=== PATIENT | male | born 1965 | race Caucasian/White ===

== ENCOUNTER → 2018-02-09 | Outpatient (CLI) | payer BC | END | disposition home or self-care (01) | LOC: LABPAT 08:17 | PROVIDERS: ATTEND Surgery Plastic and Reconstructive Surgery | DX: Z01.818 Encounter for other preprocedural examination (principal) | CPT/HCPCS: 93005 ==

== ENCOUNTER → 2018-12-16 | Day surgery (SDC) | payer BC ==
[2018-12-12 14:48] VITALS: BMI 26.6
[~2018-12-16] MED LIST: DEXAMETHASONE SOD PHOSPHATE 10 MG/ML 1 ML VIAL IV ONE; GLYCOPYRROLATE 0.2 MG/ML 2 ML VIAL ONE; HEPARIN SODIUM,PORCINE 5,000 UNIT/ML 1 ML VIAL SQ ONE; HYDROcodone/APAP 7.5-325MG 1 EACH TAB PO ONE; HYDROmorphone 0.5 MG/0.5 ML SYRINGE IVP PRN; KETOROLAC 30 MG/ML 1 ML VIAL ONE; LACTATED RINGERS 1,000 ML IV ONE; LACTATED RINGERS 1,000 ML IV SCH; LIDOCAINE 1% INJ 10MG/ML (20 ML MDV) ONE; LIDOCAINE 1%-EPI 1:100,000 20 ML VIAL SQ ONE; MIDAZOLAM (PF) 2 MG/2 ML VIAL IVP ONE; MIDAZOLAM 2 MG/2 ML VIAL ONE; NEOSTIGMINE 1 MG/ML 10 ML VIAL ONE; ONDANSETRON 4 MG/2 ML VIAL IVP ONE; PROPOFOL 10 MG/ML 20 ML VIAL IV ONE; ROCURONIUM BROMIDE 10 MG/ML 10 ML VIAL IV ONE; ROPIVACAINE 5 MG/ML 30 ML VIAL ONE; TAMSULOSIN 0.4 MG CAP.ER.24H PO STA; ceFAZolin IN SWFI 2 GM/20 ML SYRINGE IVP ONE; fentaNYL (PF) 50 MCG/ML 2 ML AMP IVP ONE; fentaNYL (PF) 50 MCG/ML 2 ML AMP ONE
--- NOTE | 2018-12-16 06:18 | P.GSHP ---
History of Present Illness H&P Date: 12/16/18 CHIEF COMPLAINT: Inguinal hernia, right HISTORY OF PRESENT ILLNESS: The patient is a 51-year-old male who presents with a history of swelling and pain along the right groin. He also reports umbilical hernia. He's noted increased swelling including pain of the area. Now he presents for repair of his inguinal and ventral hernia. PAST MEDICAL HISTORY: Please see list. PAST SURGICAL HISTORY: Please see list. MEDICATIONS: Please see list. ALLERGIES: Please see list. SOCIAL HISTORY: No illicit drug use FAMILY HISTORY: No reports of Crohn disease or ulcerative colitis. REVIEW OF ORGAN SYSTEMS: CONSTITUTIONAL: No reports of fevers or chills. No reports of weight loss despite prior attempts. GI: Denies any blood in stools or constipation. PHYSICAL EXAM: VITAL SIGNS: Stable GENERAL: Well-developed pleasant male in no acute distress. HEENT: No scleral icterus. Extraocular movements grossly intact. Moist buccal mucosa. NECK: Supple without lymphadenopathy. CHEST: Unlabored respirations. Equal bilateral excursions. CARDIOVASCULAR: Regular rate and rhythm. Distal 2+ pulses. ABDOMEN: Soft, nondistended. No peritoneal signs. Palpable defect of the right groin and umbilicus MUSCULOSKELETAL: No clubbing, cyanosis, or edema. ASSESSMENT: 1. Inguinal hernia, right 2. Umbilical hernia PLAN: 1. Recommend proceeding with a robotic inguinal and ventral repair with mesh with possible bilateral approach. 2. Benefits and risks of surgical intervention was discussed including possibility of open technique. 3. DVT prophylaxis. 4. Antibiotic prophylaxis. Past Medical History Past Medical History: Hyperlipidemia, Hypertension Additional Past Medical History / Comment(s): hx kidney stones History of Any Multi-Drug Resistant Organisms: None Reported Past Surgical History: Adenoidectomy, Tonsillectomy Additional Past Surgical History / Comment(s): polyps removed from sinus, lithotripsy Past Anesthesia/Blood Transfusion Reactions: No Reported Reaction Smoking Status: Never smoker - Past Family History Mother Family Medical History: No Reported History Medications and Allergies Home Medications Medication Instructions Recorded Confirmed Type Atorvastatin [Lipitor] 20 mg PO HS 12/13/18 12/13/18 History Telmisartan [Micardis] 40 mg PO HS 12/13/18 12/13/18 History Allergies Allergy/AdvReac Type Severity Reaction Status Date / Time No Known Allergies Allergy Verified 12/12/18 14:41
--- NOTE | 2018-12-16 09:48 | P.ANPRN ---
Procedure Note - Anesthesia - Nerve Block Performed Bilateral Rectus Abdominis Single Time Out Performed: Yes Date of Procedure: 12/16/18 Procedure Start Time: : Procedure Stop Time: :40 Location of Patient Procedure: PreOp Indication: Requested by physician Specifically requested for management of pain by DrJessica: Lashae Gregg Sedation Type: Sedate with meaningful contact maintained Preparation: Sterile Prep Position: Supine Needle Types: Pajunk Needle Gauge: 21 Technique: Ultrasound Injectate: 0.5% Ropivacaine (see comment for volume) (15+15) Blood Aspirated: No Pain Paresthesia on Injection Noted: No Resistance on Injection: Normal Events: Uneventful and Well Tolerated
[2018-12-16 13:08] VITALS: TEMP 98
--- NOTE | 2018-12-16 13:19 | P.OP ---
Date of Procedure: 12/16/18 Description of Procedure: SURGEON: LASHAE GREGG MD PREOPERATIVE DIAGNOSES: 1. Initial right inguinal hernia, initial 2. Hyperlipidemia 3. Hypertensive heart disease 4. Umbilical hernia, initial POSTOPERATIVE DIAGNOSES: 1. Initial right inguinal hernia, initial, incarcerated with small bowel obstruction, indirect 2. Hyperlipidemia 3. Hypertensive heart disease 4. Umbilical hernia, initial, incarcerated 5. Initial left inguinal hernia, reducible, indirect 6. Right inguinal lipoma, subfascial, 3 x 4 cm OPERATION: 1. Robotic-assisted da Esau Xi laparoscopic repair of initial incarcerated right direct inguinal hernia with mesh, 11.[address] 2. Robotic-assisted da Esau Xi laparoscopic repair of initial incarcerated left direct inguinal hernia with mesh, 11.[address] 3. Robotic-assisted da Esau Xi laparoscopic repair of initial incarcerated umbilical hernia without mesh 4. Resection of incarcerated right inguinal lipoma, 4 cm ANESTHESIA: General with local anesthetic ESTIMATED BLOOD LOSS: 5 mL. SPECIMENS: 1. Incarcerated right inguinal hernia sac 2. Incarcerated umbilical hernia 3. Right inguinal lipoma COMPLICATIONS: None. FINDINGS: 1. Incarcerated umbilical hernia 3 cm 2. Inguinal lipoma right groin 3 x 4 cm 3. Redundancy of sigmoid colon identified 4. Bilateral indirect hernias, 2 cm inguinal hernia left 5. 4 cm inguinal hernia incarcerated with small bowel without strangulation right side 6. Console length 1 hour and 48 minutes INDICATIONS: The patient is a 53-year-old gentleman who presents with history of right inguinal hernia and umbilical hernia. Now he presents for definitive surgical intervention. Laparoscopic versus open and robotic approaches were discussed including bilateral approach. Benefits and risks including bleeding, infection, injury to the vas deferens as well as sterility and chronic groin pain were reviewed. Placement of mesh was also described. Informed consent was obtained. DESCRIPTION: In the preoperative area, an abdominal block was placed per anesthesia. The patient was brought to the operating room and initially laid in supine position. The abdomen had been prepped and draped in standard sterile fashion. Ioban draping was also placed. Prior to incision, a timeout protocol was confirmed with surgical team regarding patient's name including procedures to be performed. Initial positioning for the robotic assisted ports were selected whereby 20 cm superior to the target anatomy, 0 degree 5 mm laparoscopic trocar entry was performed at the left upper quadrant. The abdomen was insufflated to 15 mmHg which he had tolerated well. Diagnostic laparoscopy demonstrated no injury to bowel, viscera or mesentery. Incarcerated small bowel was found along the right groin. A defect along the left groin was found. The sigmoid colon was highly redundant. Next, along the epigastrium, 8 mm robot trocar was placed. An 8-mm robotic trocar was placed under direct visualization at the right upper quadrant. An 8 mm port was placed at the left upper quadrant. All trocars were positioned between 10-cm apart from each other. The [email or web address] robot was primed, draped, prepared for docking along upper abdomen of the patient. The patient was positioned 16 steep Trendel enburg position. I then went to the [email or web address] Xi console. The assistant store leader was at bedside for exchange of the robot arms and equipment. A very large right inguinal defect was confirmed as the small bowel was reduced from the right groin after direct pressure over the inguinal area was placed by the assistant store leader. Next, careful attention along the right groin demonstrated 4-cm hernia with the sac extending to the scrotum. A large indirect hernia was confirmed. The right inguinal hernia sac was evaginated whereby the peritoneum was scored using Endo scissors with cautery. As the hernia sac extended into the scrotum, complete resection of the sac was incomplete. Additionally, a 3 x 4 cm right inguinal lipoma was reduced. The peritoneal sac of the hernia was stripped along a tightly incarcerated inguinal hernia involving a large 4-cm right inguinal lipoma. The lipoma and sac was resected and then passed off for further pathological analysis. The size of the hernia defect was 4 cm with intraoperative films obtained. Using a 2-0 VLOC, the peritoneal defect of the right inguinal hernia site was closed using a running suture. The defect was found to be completely closed with complete reduction of the right direct inguinal hernia was confirmed. As an onlay, an 11.[address] mesh by [employer] was initially cut in half and entered into the abdominal cavity via the 8 mm trocar. The mesh was tacked to the pelvis using 2-0 VLOC 9-inch length sutures. Attention was brought to the left groin. The left indirect inguinal hernia sac was evaginated whereby the peritoneum was scored using Endo scissors with cautery. Once completely reduced into the abdominal cavity, the peritoneal sac of the hernia was stripped. The sac was resected and then passed off for further pathological analysis. The size of the hernia defect was 3 cm with intraoperative films obtained. Using a 2-0 VLOC, the peritoneal defect of the left inguinal hernia sites was closed using a running suture separately. The defect was found to be completely closed with complete reduction of the left indirect inguinal hernia were confirmed. As an onlay, an 11.[address] mesh by [employer] was initially cut in half and entered into the abdominal cavity via the 8 mm trocar. The mesh was tacked to the pelvis using 2-0 VLOC 12-inch length sutures. Lastly, attention was brought to the umbilical hernia repair portion of the procedure. Fascial defect of 2 cm was identified at the umbilicus where an incarcerated ventral hernia was identified also containing fat. The incarcerated contents was reduced as the peritoneal fat was cleaned from the abdominal wall. Next, hemostasis was checked with cautery. The hernia defect of 2-cm was oversewn using #1 Stratafix with fascial imbrication 3. A final endoscopic imaging was obtained. The robot was undocked from the patient's bedside. I then rescrubbed into the case. Insufflation was released from the abdominal cavity and all instruments were re moved from the abdominal cavity. The rest of incisions were reapproximated using 4-0 Monocryl in a running subcuticular fashion. Local anesthetic was placed along the incision including for a bilateral groin block. Incisions were cleansed using dilute hydrogen peroxide. Liquid glue was applied to the skin. At the end of the procedure, the needle, sponge and instrument counts had been verified correct by the surgical supply assistant. The patient had tolerated the procedure well and was taken to the postanesthesia care unit in stable condition. Plan - Discharge Summary Discharge Rx Participant: Yes New Discharge Prescriptions: No Action Telmisartan [Micardis] 40 mg PO HS Atorvastatin [Lipitor] 20 mg PO HS Discharge Medication List Atorvastatin [Lipitor] 20 mg PO HS 12/13/18 [History] Telmisartan [Micardis] 40 mg PO HS 12/13/18 [History] Follow up Appointment(s)/Referral(s): Lashae Gregg MD [STAFF PHYSICIAN] - 12/27/18 Patient Instructions/Handouts: Laparoscopic Herniorrhaphy (DC), Abdominal Binder (DC), Inguinal Hernia Repair (DC), Umbilical Hernia Repair (DC) Activity/Diet/Wound Care/Special Instructions: No lifting over 4 pounds till December 27. October shower. No bath tub soaks until December 27t. Do not remove dressing at belly button. Use Tylenol or ibuprofen for pain. Use ice along incisions including bilateral groin and bellybutton. Please wear abdominal binder for comfort. Discharge Disposition: HOME SELF-CARE
[2018-12-16 14:11] VITALS: RESP 17
[2018-12-16 14:13] VITALS: BP 144/82; PULSE 70
== END | disposition home or self-care (01) ==
LOC: OR 08:22
PROVIDERS: ATTEND Surgery Plastic and Reconstructive Surgery
DX: K40.00 Bilateral inguinal hernia, with obstruction, without gangrene, not specified as recurrent (principal); K42.0 Umbilical hernia with obstruction, without gangrene; D17.1 Benign lipomatous neoplasm of skin and subcutaneous tissue of trunk; E78.5 Hyperlipidemia, unspecified; I11.9 Hypertensive heart disease without heart failure; Z87.442 Personal history of urinary calculi; Z79.899 Other long term (current) drug therapy
CPT/HCPCS: 64488; 88304; 88302; 49650; 49653; 11406; C1781; J2250 ×2; J1644; J1100; J2710; J2405; J2001; J3010; J1885; J2795; J2704; J0690

== ENCOUNTER 2019-01-06 11:02 | Day surgery (SDC) | payer BC ==
[2019-01-04 14:48] VITALS: BMI 27.3
--- NOTE | 2019-01-06 07:29 | P.GSHP ---
History of Present Illness H&P Date: 01/06/19 CHIEF COMPLAINT: GERD HISTORY OF PRESENT ILLNESS: The patient is a 53-year-old male who presents reports gastroesophageal reflux disease. Upper endoscopy was offered for further evaluation and management. PAST MEDICAL HISTORY: Please see list. PAST SURGICAL HISTORY: Please see list. MEDICATIONS: Please see list. ALLERGIES: Please see list. SOCIAL HISTORY: No illicit drug use FAMILY HISTORY: No reports of Crohn disease or ulcerative colitis. REVIEW OF ORGAN SYSTEMS: CONSTITUTIONAL: No reports of fevers or chills. GI: Denies any blood in stools or constipation. PHYSICAL EXAM: VITAL SIGNS: Stable GENERAL: Well-developed and pleasant in no acute distress. HEENT: No scleral icterus. Extraocular movements grossly intact. Moist buccal mucosa. NECK: Supple without lymphadenopathy. CHEST: Unlabored respirations. Equal bilateral excursions. CARDIOVASCULAR: Regular rate and rhythm. Distal 2+ pulses. ABDOMEN: Soft, nondistended. MUSCULOSKELETAL: No clubbing, cyanosis, or edema. ASSESSMENT: 1. Gastroesophageal reflux disease PLAN: 1. Recommend proceeding with an upper endoscopy Past Medical History Past Medical History: Hyperlipidemia, Hypertension Additional Past Medical History / Comment(s): hx kidney stones History of Any Multi-Drug Resistant Organisms: None Reported Past Surgical History: Adenoidectomy, Hernia Repair, Tonsillectomy Additional Past Surgical History / Comment(s): polyps removed from sinus, lithotripsy. umbilical hernia and lonny inguinal hernia surgery Past Anesthesia/Blood Transfusion Reactions: No Reported Reaction Smoking Status: Never smoker - Past Family History Mother Family Medical History: No Reported History Medications and Allergies Home Medications Medication Instructions Recorded Confirmed Type Atorvastatin [Lipitor] 20 mg PO HS 12/13/18 01/04/19 History Telmisartan [Micardis] 40 mg PO HS 12/13/18 01/04/19 History Allergies Allergy/AdvReac Type Severity Reaction Status Date / Time No Known Allergies Allergy Verified 01/04/19 14:43
[~2019-01-06 11:02] MED LIST changes: -DEXAMETHASONE SOD PHOSPHATE 10 MG/ML 1 ML VIAL IV ONE; -GLYCOPYRROLATE 0.2 MG/ML 2 ML VIAL ONE; -HEPARIN SODIUM,PORCINE 5,000 UNIT/ML 1 ML VIAL SQ ONE; -HYDROcodone/APAP 7.5-325MG 1 EACH TAB PO ONE; -HYDROmorphone 0.5 MG/0.5 ML SYRINGE IVP PRN; -KETOROLAC 30 MG/ML 1 ML VIAL ONE; -LACTATED RINGERS 1,000 ML IV ONE; -LIDOCAINE 1% INJ 10MG/ML (20 ML MDV) ONE; -LIDOCAINE 1%-EPI 1:100,000 20 ML VIAL SQ ONE; -MIDAZOLAM (PF) 2 MG/2 ML VIAL IVP ONE; -MIDAZOLAM 2 MG/2 ML VIAL ONE; -NEOSTIGMINE 1 MG/ML 10 ML VIAL ONE; -ONDANSETRON 4 MG/2 ML VIAL IVP ONE; -PROPOFOL 10 MG/ML 20 ML VIAL IV ONE; -ROCURONIUM BROMIDE 10 MG/ML 10 ML VIAL IV ONE; -ROPIVACAINE 5 MG/ML 30 ML VIAL ONE; -TAMSULOSIN 0.4 MG CAP.ER.24H PO STA; -ceFAZolin IN SWFI 2 GM/20 ML SYRINGE IVP ONE; -fentaNYL (PF) 50 MCG/ML 2 ML AMP IVP ONE; -fentaNYL (PF) 50 MCG/ML 2 ML AMP ONE
[2019-01-06 11:24] VITALS: RESP 18; TEMP 98.3
[2019-01-06] MEDS ORDERED: PROPOFOL 10 MG/ML 20 ML VIAL IV ONE (11:45)
[2019-01-06] MEDS ORDERED: LIDOCAINE 1% INJ 10MG/ML (20 ML MDV) ONE (11:45)
--- NOTE | 2019-01-06 11:58 | P.PCN ---
Date of Procedure: 01/06/19 Description of Procedure: PREOPERATIVE DIAGNOSIS: Gastroesophageal reflux disease. POSTOPERATIVE DIAGNOSIS: Gastroesophageal reflux disease. OPERATION: Esophagogastroduodenoscopy with biopsies along antrum. SURGEON: Lashae Gregg MD ANESTHESIA: MAC. INDICATIONS: The patient is a 53-year-old male who presents with a history of reflux disease. Benefits and risks of the procedure were described. Informed consent was obtained. DESCRIPTION: The patient was brought into the endoscopy suite and laid in the left lateral decubitus position. An Olympus gastroscope was passed along the posterior oropharynx down to the distal esophagus where the squamocolumnar junction was encountered at 39 cm from the incisors. The stomach was entered and no bile reflux was found. Additional findings are listed below. Biopsies with cold forceps were obtained of the antrum. The first through third portion of the duodenum was examined and unremarkable. Retroflexion of the scope confirmed Hill grade 2 lower esophageal valve. The squamocolumnar junction demonstrated LA grade B erosive esophagitis. The stomach was desufflated. The patient tolerated the procedure well. FINDINGS: Squamocolumnar junction 39 cm from the incisors. Diaphragmatic hiatus at 39 cm. Hill grade 2 lower esophageal valve. LA grade B erosive esophagitis. No active duodenitis. Chronic gastritis RECOMMENDATIONS: Upper endoscopy as needed. Plan - Discharge Summary Discharge Rx Participant: Yes New Discharge Prescriptions: New Omeprazole 20 mg PO DAILY #30 cap No Action Telmisartan [Micardis] 40 mg PO HS Atorvastatin [Lipitor] 20 mg PO HS Discharge Medication List Atorvastatin [Lipitor] 20 mg PO HS 12/13/18 [History] Telmisartan [Micardis] 40 mg PO HS 12/13/18 [History] Omeprazole 20 mg PO DAILY #30 cap 01/06/19 [Rx] Follow up Appointment(s)/Referral(s): Lashae Gregg MD [STAFF PHYSICIAN] - 01/24/19 Patient Instructions/Handouts: Gastroesophageal Reflux Disease (ED) Discharge Disposition: HOME SELF-CARE
[2019-01-06 12:24] VITALS: BP 126/76; PULSE 68
== END 2019-01-06 12:32 | disposition home or self-care (01) ==
LOC: ORWHC2ENDO 11:02
PROVIDERS: ATTEND Surgery Plastic and Reconstructive Surgery
DX: K29.50 Unspecified chronic gastritis without bleeding (principal); E78.5 Hyperlipidemia, unspecified; I10 Essential (primary) hypertension; K22.10 Ulcer of esophagus without bleeding; K21.9 Gastro-esophageal reflux disease without esophagitis; Z79.899 Other long term (current) drug therapy; Z87.442 Personal history of urinary calculi
CPT/HCPCS: 88305; 43239; J2001; J2704

== ENCOUNTER → 2021-01-08 | Outpatient (CLI) | payer BC ==
--- NOTE | 2021-01-09 07:43 | CT ---
EXAMINATION TYPE: CT abdomen pelvis w con DATE OF EXAM: 01/08/2021 COMPARISON: January 21, 2016 HISTORY: Umbilical and right inguinal pain x2 months. CT DLP: 854.6 mGycm CONTRAST: CT scan of the abdomen and pelvis is performed with Oral Contrast and with IV Contrast, patient injec newton with 100ml mL of Isovue 300. FINDINGS: LUNG BASES-: No visible nodule. No infiltrate. LIVER/GB: No calcified gallstones. No space occupying hepatic lesion. Biliary tree is of normal ca liber. PANCREAS: No inflammation. No distinct mass. SPLEEN: No splenic enlargement. No lesion seen. ADRENALS: No nodule. No thickening. KIDNEYS/BLADDER: No hydronephrosis. No nephrolithiasis. No distinct renal mass. Urinary bladder g rossly unremarkable. BOWEL: Normal appendix. Normal bowel caliber. No inflammation. GENITAL ORGANS: No gross abnormality. LYMPH NODES: No greater than 1cm abdominal or pelvic lymph nodes are appreciated. AORTA: No significant abnormality. OSSEOUS STRUCTURES: No significant abnormality is seen. OTHER: No significant additional abnormality is seen. IMPRESSION: 1. No evidence for inflammatory process and more specifically diverticulitis.
== END | disposition home or self-care (01) ==
LOC: RADCTMAIN 16:28
PROVIDERS: ATTEND Surgery Plastic and Reconstructive Surgery
DX: K42.9 Umbilical hernia without obstruction or gangrene (principal); K40.90 Unilateral inguinal hernia, without obstruction or gangrene, not specified as recurrent; R10.9 Unspecified abdominal pain
CPT/HCPCS: 74177; Q9967

== ENCOUNTER → 2021-01-14 | Outpatient (CLI) | payer BC | END | disposition home or self-care (01) | LOC: LABWHC1 10:16 | PROVIDERS: ATTEND Surgery Plastic and Reconstructive Surgery | DX: I11.0 Hypertensive heart disease with heart failure (principal); I50.9 Heart failure, unspecified; I49.1 Atrial premature depolarization; I42.2 Other hypertrophic cardiomyopathy; R94.31 Abnormal electrocardiogram [ECG] [EKG] | CPT/HCPCS: 93005 ==

== ENCOUNTER 2021-03-14 09:38 | Day surgery (SDC) | payer BC ==
[2021-03-11 17:48] VITALS: BMI 28.1
--- NOTE | 2021-03-14 06:15 | P.GSHP ---
History of Present Illness H&P Date: 03/14/21 CHIEF COMPLAINT: Inguinal hernia, right. HISTORY OF PRESENT ILLNESS: The patient is a 55-year-old male who presents with a history of swelling and pain along the right groin. He has noted increased swelling including pain of the area. Now he presents for repair of his inguinal hernia. PAST MEDICAL HISTORY: Please see list. PAST SURGICAL HISTORY: Please see list. MEDICATIONS: Please see list. ALLERGIES: Please see list. SOCIAL HISTORY: No illicit drug use FAMILY HISTORY: No reports of Crohn disease or ulcerative colitis. REVIEW OF ORGAN SYSTEMS: CONSTITUTIONAL: No reports of fevers or chills. No reports of weight loss despite prior attempts. GI: Denies any blood in stools or constipation. PHYSICAL EXAM: VITAL SIGNS: Stable GENERAL: Well-developed pleasant in no acute distress. HEENT: No scleral icterus. Extraocular movements grossly intact. Moist buccal mucosa. NECK: Supple without lymphadenopathy. CHEST: Unlabored respirations. Equal bilateral excursions. CARDIOVASCULAR: Regular rate and rhythm. Distal 2+ pulses. ABDOMEN: Soft, nondistended. No peritoneal signs. Swelling along the right groin MUSCULOSKELETAL: No clubbing, cyanosis, or edema. ASSESSMENT: 1. Inguinal hernia, right recurrent PLAN: 1. Recommend proceeding robotic inguinal repair with mesh with possible bilateral approach. 2. Benefits and risks of surgical intervention was discussed including possibility of open technique. 3. DVT prophylaxis. 4. Antibiotic prophylaxis. Past Medical History Past Medical History: Hyperlipidemia, Hypertension Additional Past Medical History / Comment(s): hx kidney stones, arrythmia History of Any Multi-Drug Resistant Organisms: None Reported Past Surgical History: Adenoidectomy, Hernia Repair, Tonsillectomy Additional Past Surgical History / Comment(s): polyps removed from sinus, lithotripsy,. umbilical hernia and lonny inguinal hernia surgery Past Anesthesia/Blood Transfusion Reactions: No Reported Reaction Smoking Status: Never smoker - Past Family History Mother Family Medical History: No Reported History Medications and Allergies Home Medications Medication Instructions Recorded Confirmed Type Atorvastatin [Lipitor] 20 mg PO HS 12/13/18 03/11/21 History Irbesartan [Avapro] 150 mg PO DAILY 03/11/21 03/11/21 History Allergies Allergy/AdvReac Type Severity Reaction Status Date / Time No Known Allergies Allergy Verified 03/11/21 17:29
[~2021-03-14 09:38] MED LIST changes: +ACETAMINOPHEN TAB 500 MG TAB PO PRN; +DEXAMETHASONE SOD PHOSPHATE 4 MG/ML 1 ML VIAL IV ONE; +GABAPENTIN 300 MG CAP PO PRN; +HEPARIN SODIUM,PORCINE/PF 5,000 UNIT/0.5 ML SYRINGE SQ PRN; +MELOXICAM 7.5 MG TAB PO PRN; +MIDAZOLAM 2 MG/2 ML VIAL IV PRN; +ONDANSETRON 4 MG/2 ML VIAL IVP ONE; +SCOPOLAMINE 1.5MG/72HR PATCH TRANSDERM ONE; +TAMSULOSIN 0.4 MG CAP.ER.24H PO PRN
[2021-03-14 10:00] VITALS: RESP 16
[2021-03-14 10:33] LABS: Basophils % (A) 1 %; Eosinophils # (A) 0.2 k/uL (0-0.7); Eosinophils % (A) 2 %; HCT 47.6 % (39.0-53.0); HGB 16.5 gm/dL (13.0-17.5); Hyperchromasia Slight; Lymphocytes # (A) 1.6 k/uL (1.0-4.8); Lymphocytes % (A) 23 %; MCH 28.5 pg (25.0-35.0); MCHC 34.6 g/dL (31.0-37.0); MCV 82.4 fL (80.0-100.0); Mean Platelet Volume 9.2; Monocytes # (A) 0.5 k/uL (0-1.0); Monocytes % (A) 7 %; Neutrophils # (A) 4.8 k/uL (1.3-7.7); Neutrophils % (A) 66 %; Platelet Count 169 k/uL (150-450); RBC 5.78 m/uL (4.30-5.90); RDW 12.7 % (11.5-15.5); WBC 7.2 k/uL (3.8-10.6)
[2021-03-14] MEDS ORDERED: fentaNYL (PF) 50 MCG/ML 2 ML AMP IV ONE (11:14)
[2021-03-14] MEDS ORDERED: MIDAZOLAM 2 MG/2 ML VIAL IV ONE ×2 (11:14→11:27)
[2021-03-14] MEDS ORDERED: HEPARIN SODIUM,PORCINE 5,000 UNIT/ML 1 ML VIAL SQ ONE (11:23)
[2021-03-14] MEDS ORDERED: GLYCOPYRROLATE 0.2 MG/ML 2 ML VIAL ONE (13:24)
[2021-03-14] MEDS ORDERED: HYDROmorphone (PF) 1 MG/ML ONE (13:24)
[2021-03-14] MEDS ORDERED: MIDAZOLAM 2 MG/2 ML VIAL ONE (13:24)
[2021-03-14] MEDS ORDERED: fentaNYL (PF) 50 MCG/ML 2 ML AMP ONE (13:24)
[2021-03-14] MEDS ORDERED: PROPOFOL 10 MG/ML 20 ML VIAL IV ONE (13:24)
[2021-03-14] MEDS ORDERED: NEOSTIGMINE 1 MG/ML 10 ML VIAL ONE (13:24)
[2021-03-14] MEDS ORDERED: LIDOCAINE 1% INJ 10MG/ML (20 ML MDV) ONE (13:24)
[2021-03-14] MEDS ORDERED: SODIUM CHLORIDE 0.9% (PF) 10 ML VIAL ONE (13:24)
[2021-03-14] MEDS ORDERED: ROCURONIUM 10 MG/ML (5 ML VIAL) IV ONE (13:24)
[2021-03-14] MEDS ORDERED: ROPIVACAINE 5 MG/ML 30 ML VIAL ONE (13:24)
[2021-03-14] MEDS ORDERED: SUCCINYLCHOLINE CHLORIDE 100 MG/5 ML SYR IV ONE (13:24)
[2021-03-14] MEDS ORDERED: LIDOCAINE 1%-EPI 1:100,000 20 ML VIAL SQ ONE (14:00)
[2021-03-14] MEDS ORDERED: LACTATED RINGERS 1,000 ML IV ONE (15:16)
[2021-03-14 15:41] VITALS: TEMP 96.8
[2021-03-14] MEDS ORDERED: KETOROLAC 15 MG/ML 1 ML VIAL ONE (16:11)
[2021-03-14] MEDS: HYDROmorphone 0.5 MG/0.5 ML SYRINGE IVP PRN ×2 (16:14→16:15)
[2021-03-14] MEDS ORDERED: KETOROLAC 15 MG/ML 1 ML VIAL IVP ONE (16:16)
[2021-03-14 17:13] VITALS: BP 136/87; PULSE 98
--- NOTE | 2021-03-14 17:41 | P.ANPRN ---
Procedure Note - Anesthesia - Nerve Block Performed Bilateral Erector Spinae Single Time Out Performed: Yes (1113) Date of Procedure: 03/14/21 Procedure Start Time: :14 Procedure Stop Time: Location of Patient: PreOp Indication: Acute Post-Operative Pain, Requested by Surgeon Specifically requested for management of pain by : Lashae Gregg Sedation Type: Sedate with meaningful contact maintained Preparation: Sterile Prep Position: Prone Catheter: None Needle Types: Pajunk Needle Gauge: 21 Ultrasound used to visualize needle placement: Yes Ultrasound used to observe medication spread: Yes Injectate: 0.5% Ropivacaine (see comment for volume) (15cc + nacl 15cc pf) Blood Aspirated: No Pain Paresthesia on Injection Noted: No Resistance on Injection: Normal Image Stored and Saved: Yes Events: Uneventful and Well Tolerated
--- NOTE | 2021-03-15 12:41 | P.OP ---
Date of Procedure: 03/14/21 Description of Procedure: SURGEON: LASHAE GREGG MD PREOPERATIVE DIAGNOSES: 1. Recurrent right inguinal hernia 2. History of small bowel obstruction 3. Hypertensive heart disease 4. Hyperlipidemia POSTOPERATIVE DIAGNOSES: 1. Obturator right inguinal hernia 2. History of small bowel obstruction 3. Hypertensive heart disease 4. Hyperlipidemia 5. Peritoneal adhesions with interloop adhesions OPERATION: 1. Robotic-assisted da Esau Xi extensive laparoscopic lysis of adhesions 30 minutes 2. Robotic-assisted da Esau Xi laparoscopic right recurrent inguinal/obturator hernia repair with mesh, 11.[address] 3. Excision of subfascial inguinal pelvic lipoma, 4-cm ANESTHESIA: General with local anesthetic ESTIMATED BLOOD LOSS: 5 mL. SPECIMENS REMOVED: Right obturator hernia lipoma COMPLICATIONS: None. FINDINGS: 1. Hernia found superior lateral to the bladder with obturator hernia 2. Obturator inguinal lipoma resected 4 cm 3. Primary repair intact. 4. Moderate peritoneal adhesions along bilateral hernia repairs sharply excised using the cautery and vessel sealer 5. Severe interloop adhesions involving distal ileum sharply excised INDICATIONS: The patient is a 55-year-old gentleman who presents with right groin pain and swelling. He had prior right inguinal hernia repair. Additionally, he reports intermittent bowel obstruction with abdominal pain and swelling. Now he presents for surgical intervention. Laparoscopic versus open and robotic approaches were discussed. Benefits and risks including bleeding, infection, injury to the vas deferens as well as sterility and chronic groin pain were reviewed. Placement of mesh was also described. Informed consent was obtained. DESCRIPTION: In the preoperative area, the patient was marked with indelible marker along the right lower abdomen. He patient was brought to the operating room and initially laid in supine position. The abdomen had been prepped and draped in standard sterile fashion. Ioban draping was also placed. Prior to incision, a timeout protocol was confirmed with surgical team regarding patient's name including procedures to be performed and location along the right groin. Robotic assisted ports were placed along his prior incisions. A 0 degree 5 mm laparoscopic trocar entry was performed at the left upper quadrant. The abdomen was insufflated to 15 mmHg which he had tolerated well. Diagnostic laparoscopy demonstrated severe peritoneal adhesions along prior inguinal hernia repair sites. Defect along the superior lateral bladder consistent obturator hernia was identified. Severe adhesions involving the right lower quadrant small bowel, distal ileum was identified. Prior mesh repair along both groins were intact. Next, along the epigastrium, 8 mm robot trocar was placed. An 8-mm robotic trocar was placed under direct visualization at the right upper quadrant. An 8 mm port was placed at the left upper quadrant. All trocars were positioned between 8 to 10-cm apart from each other. The [employer] XI robot was primed, draped, prepared for docking along the right side of the patient. The patient was placed in Trendelenberg position 21-degrees. I then went to the [employer] Xi console. The resident assistant was at bedside for exchange of the robot instruments. Extensive lysis of adhesions using hook cautery and vessel sealer were used over 30 minutes to address adhesions along the bilateral groins. Sharp dissection using scissors was used along multiple interloop adhesions involving the right lower quadrant/distal ileum without enterotomies. No hernia was identified along the left groin. The right inguinal obturator hernia sac was evaginated whereby the peritoneum was scored using Endo scissors with cautery. Once completely reduced into the abdominal cavity, the peritoneal sac of the hernia was stripped along an indirect inguinal hernia and a 4-cm subfascial pelvic lipoma and sac was resected and then passed off for further pathological analysis. The size of the hernia defect was 2 cm with intraoperative films obtained. Using a non-absorbale 2-0 VLOC, the peritoneal defect of the right inguinal hernia site was closed using a pursestring suture. The defect was found to be completely closed with complete reduction of the right obturator inguinal hernia was confirmed. As an onlay, an 11.[address] mesh by [employer] was initially cut in half and entered into the abdominal cavity via the 8 mm trocar. The mesh was tacked to the pelvis using 2-0 VLOC 9-inch length sutures. The robot was undocked from the patient's bedside. I then rescrubbed into the case. Insufflation was released from the abdominal cavity and all instruments were removed from the abdominal cavity. The rest of incisions were reapproximated using 4-0 Monocryl in a running subcuticular fashion. Local anesthetic was placed along the incision including for a right groin block. Incisions were cleansed using dilute hydrogen peroxide. Liquid glue was applied to the skin. At the end of the procedure, the needle, sponge and instrument counts had been verified correct by the surgical assist. The patient had tolerated the procedure well and was taken to the postanesthesia care unit in stable condition. Plan - Discharge Summary Discharge Rx Participant: Yes New Discharge Prescriptions: New Tamsulosin [Flomax] 0.4 mg PO DAILY #7 cap Simethicone [Gas-X] 125 mg PO AC-TID PRN #20 cap PRN Reason: Pain Ibuprofen [Motrin] 600 mg PO Q8HR PRN #30 tab PRN Reason: Pain Acetaminophen Tab [Tylenol Tab] 1,000 mg PO Q6HR PRN #30 tablet PRN Reason: Pain Continue Atorvastatin [Lipitor] 20 mg PO HS Irbesartan [Avapro] 150 mg PO DAILY Discharge Medication List Atorvastatin [Lipitor] 20 mg PO HS 12/13/18 [History] Irbesartan [Avapro] 150 mg PO DAILY 03/11/21 [History] Acetaminophen Tab [Tylenol Tab] 1,000 mg PO Q6HR PRN #30 tablet 03/14/21 [Rx] Ibuprofen [Motrin] 600 mg PO Q8HR PRN #30 tab 03/14/21 [Rx] Simethicone [Gas-X] 125 mg PO AC-TID PRN #20 cap 03/14/21 [Rx] Tamsulosin [Flomax] 0.4 mg PO DAILY #7 cap 03/14/21 [Rx] Follow up Appointment(s)/Referral(s): Lashae Gregg MD [STAFF PHYSICIAN] - 03/25/21 (CALL ON WEDNESDAY TO MAKE APPOINTMENT.) Patient Instructions/Handouts: *[facility] - Managing Your Pain After Surgery Without Opioids, *[facility] - (Anesthesia) Discharge Instructions Outpatient Surgery, Laparoscopic Herniorrhaphy (DC), Lysis of Abdominal Adhesions (IP), Bowel Obstruction (GEN), Inguinal Hernia Repair (DC) Activity/Diet/Wound Care/Special Instructions: No lifting over 10 pounds in 2 weeks until March 28. May shower. No bath tub soaks for two weeks until March 28. Diet as tolerated. Use Tylenol and ibuprofen or Aleve scheduled for the next 24-48 hours for best pain relief. Use ice along incisions for today to prevent swelling. Discharge Disposition: HOME SELF-CARE
== END 2021-03-14 17:29 | disposition home or self-care (01) ==
LOC: OR 09:38
PROVIDERS: ATTEND Surgery Plastic and Reconstructive Surgery
DX: K40.91 Unilateral inguinal hernia, without obstruction or gangrene, recurrent (principal); K66.0 Peritoneal adhesions (postprocedural) (postinfection); D17.79 Benign lipomatous neoplasm of other sites; R07.89 Other chest pain; I10 Essential (primary) hypertension; E78.5 Hyperlipidemia, unspecified; E78.00 Pure hypercholesterolemia, unspecified; Z82.49 Family history of ischemic heart disease and other diseases of the circulatory system; Z87.442 Personal history of urinary calculi; Z98.890 Other specified postprocedural states; Z79.899 Other long term (current) drug therapy
CPT/HCPCS: 49651; S2900; 64999; 85025; 88302

== ENCOUNTER → 2021-04-10 | Outpatient (CLI) | payer BC ==
--- NOTE | 2021-04-10 10:03 | US ---
EXAMINATION TYPE: US gallbladder DATE OF EXAM: 04/10/2021 COMPARISON: CT 01/08/2021 CLINICAL HISTORY: 55-year-old male K80.10 calculus of gallbladder. RUQ pain TECHNIQUE: Multiple sonographic images of the right upper quadrant are obtained. FINDINGS: EXAM MEASUREMENTS: Liver Length: 15.7 cm Gallbladder Wall: 0.3 cm CBD: 0.5 cm Right Kidney: 12.0 x 5.3 x 4.7 cm Travel Insurance Agent notes: Technical limitations due to large amount of overlying bowel content Pancreas: Only portions of the pancreatic head and neck are visualized. The body and tail are obscur ed by bowel gas shadowing. Liver: Echogenic and attenuating. No focal lesion seen. Gallbladder: non-mobile hyperechoic area anterior wall= 0.6cm, polyp Evidence for sonographic Haddad's sign: no CBD: wnl Right Kidney: no evidence of hydronephrosis. IMPRESSION: 1. At least moderate hepatic steatosis. Correlate with LFTs, lipid profile, and patient risk factors. 2. No gallstones. However, there is a nodular focus along the anterior gallbladder wall measuring 6 m m suggesting a gallbladder wall polyp. 6 month follow-up gallbladder ultrasound recommended to reasse ss. 3. No biliary ductal dilatation.
--- NOTE | 2021-04-10 16:58 | NM ---
EXAMINATION TYPE: NM hepatobiliary w EF DATE OF EXAM: 04/10/2021 COMPARISON: Ultrasound same day HISTORY: 55-year-old male K80.10 TECHNIQUE: After the intravenous administration of 3.92 mCi Tc 99m Mebrofenin hepatobiliary scintigra phy is performed. Immediate images post injection. FINDINGS: There is satisfactory initial accumulation of tracer by the liver. The gallbladder is visualized wit hin 6 minutes. The small bowel activity is noted within 6 minutes. At one hour 8 ounces of oral ens ure plus is given to mimic CCK and gallbladder ejection fraction is calculated at 68 %, in the normal range. Therefore there is no scintigraphic evidence of cystic or common bile duct obstruction to rutherford ggest acute cholecystitis or gallbladder dyskinesia. IMPRESSION: No scintigraphic evidence for acute/chronic cholecystitis or biliary dyskinesia.
== END ==
LOC: RADUSWWP 07:17
PROVIDERS: ATTEND Surgery Plastic and Reconstructive Surgery
DX: K76.0 Fatty (change of) liver, not elsewhere classified (principal)
CPT/HCPCS: 76705; 78226; A9537

== ENCOUNTER 2021-04-18 13:03 | Day surgery (SDC) | payer BC ==
[2021-04-16 10:36] VITALS: BMI 28.1
--- NOTE | 2021-04-18 11:50 | P.GSHP ---
History of Present Illness H&P Date: 04/18/21 CHIEF COMPLAINT: Cholecystitis HISTORY OF PRESENT ILLNESS: The patient is a 55-year-old male who presents with history of epigastric including right upper quadrant abdominal pain. He underwent diagnostic studies for the gallbladder. Separately his clinical picture was consistent with cholecystitis. Now he presents for surgical intervention. PAST MEDICAL HISTORY: Please see list PAST SURGICAL HISTORY: Please see list MEDICATIONS: Please see list ALLERGIES: Denies. SOCIAL HISTORY: No illicit drug use or recent tobacco use FAMILY HISTORY: Pertinent for gallbladder disease REVIEW OF ORGAN SYSTEMS: CONSTITUTIONAL: No reports of fevers or chills. HEENT: Denies any troubles with the vision or hearing. ENDOCRINE: No reports of hypothyroidism. No diabetes. RESPIRATORY: No recent pneumonias. CARDIOVASCULAR: Denies chest pain or palpitations GI: No blood in stools or constipation. MUSCULOSKELETAL: Has occasional joint pain including back pain. NEURO: No seizure disorders or headaches. No recent stroke. PSYCH: No depression or suicidal ideation. HEMATOLOGIC: No personal or family history of DVTs or pulmonary emboli. PHYSICAL EXAM: VITAL SIGNS: Afebrile vital signs stable GENERAL: Well-developed pleasant male in no acute distress. HEENT: No scleral icterus. Extraocular movements grossly intact. Moist buccal mucosa. NECK: Supple without lymphadenopathy. CHEST: Unlabored respirations. Equal bilateral excursions. CARDIOVASCULAR: Regular rate regular rhythm rhythm. Distal 2+ pulses. ABDOMEN: Soft, nondistended. MUSCULOSKELETAL: No clubbing, cyanosis, or edema. NEURO : No focal or lateralizing signs. Cranial nerves II-12 within normal limits. PSYCH: Alert and oriented to person, place and time. SKIN: Well perfused. Good skin turgor. ASSESSMENT: 1. Chronic cholecystitis PLAN: 1. Will need a robotic cholecystectomy possible open. Benefits and risks were described. 2. Heparin for DVT prophylaxis 5000 units. 3. Antibiotic prophylaxis. Past Medical History Past Medical History: Hyperlipidemia, Hypertension Additional Past Medical History / Comment(s): hx kidney stones, arrythmia History of Any Multi-Drug Resistant Organisms: None Reported Past Surgical History: Adenoidectomy, Hernia Repair, Tonsillectomy Additional Past Surgical History / Comment(s): polyps removed from sinus, lithotripsy,. umbilical hernia and lonny inguinal hernia surgery Past Anesthesia/Blood Transfusion Reactions: No Reported Reaction Smoking Status: Never smoker - Past Family History Mother Family Medical History: No Reported History Medications and Allergies Home Medications Medication Instructions Recorded Confirmed Type Atorvastatin [Lipitor] 20 mg PO HS 12/13/18 04/16/21 History Irbesartan [Avapro] 150 mg PO DAILY 03/11/21 04/16/21 History Allergies Allergy/AdvReac Type Severity Reaction Status Date / Time No Known Allergies Allergy Verified 04/16/21 10:31
[~2021-04-18 13:03] MED LIST changes: -ACETAMINOPHEN TAB 500 MG TAB PO PRN; +ACETAMINOPHEN TAB 500 MG TAB PO STA; -GABAPENTIN 300 MG CAP PO PRN; +GABAPENTIN 300 MG CAP PO STA; +INDOCYANINE GREEN 25 MG VIAL IV STA; -MELOXICAM 7.5 MG TAB PO PRN; -TAMSULOSIN 0.4 MG CAP.ER.24H PO PRN; +TAMSULOSIN 0.4 MG CAP.ER.24H PO STA
[2021-04-18 13:26] VITALS: RESP 16
[2021-04-18] MEDS ORDERED: HYDROmorphone (PF) 1 MG/ML ONE (15:23)
[2021-04-18] MEDS ORDERED: GLYCOPYRROLATE 0.2 MG/ML 2 ML VIAL ONE (15:23)
[2021-04-18] MEDS ORDERED: SUCCINYLCHOLINE CHLORIDE 100 MG/5 ML SYR IV ONE (15:23)
[2021-04-18] MEDS ORDERED: KETAMINE 10 MG/ML 20 ML VIAL ONE (15:23)
[2021-04-18] MEDS ORDERED: LIDOCAINE 1% INJ 10MG/ML (20 ML MDV) ONE (15:23)
[2021-04-18] MEDS ORDERED: NEOSTIGMINE 1 MG/ML 10 ML VIAL ONE (15:23)
[2021-04-18] MEDS ORDERED: fentaNYL (PF) 50 MCG/ML 2 ML AMP ONE (15:23)
[2021-04-18] MEDS ORDERED: KETOROLAC 15 MG/ML 1 ML VIAL ONE (15:23)
[2021-04-18] MEDS ORDERED: PROPOFOL 10 MG/ML 20 ML VIAL IV ONE (15:23)
[2021-04-18] MEDS ORDERED: MIDAZOLAM 2 MG/2 ML VIAL ONE (15:23)
[2021-04-18] MEDS ORDERED: ROCURONIUM 10 MG/ML (5 ML VIAL) IV ONE (15:23)
[2021-04-18] MEDS ORDERED: BUPIVACAINE (PF) 0.5% 30 ML VIAL SQ ONE (15:40)
[2021-04-18 16:43] VITALS: TEMP 37.2
--- NOTE | 2021-04-18 16:46 | P.OP ---
Date of Procedure: 04/18/21 Description of Procedure: SURGEON: LASHAE GREGG MD PREOPERATIVE DIAGNOSES: 1. Chronic cholecystitis 2. Gallbladder polyp 3. Right upper quadrant abdominal pain 4. Hyperlipidemia 5. Hypertensive heart disease 6. Gilbert syndrome POSTOPERATIVE DIAGNOSES: 1. Chronic cholecystitis 2. Gallbladder polyp 3. Right upper quadrant abdominal pain 4. Hyperlipidemia 5. Hypertensive heart disease 6. Gilbert syndrome OPERATION: 1. Robotic-assisted da Esau Xi laparoscopic cholecystectomy, multiport with FIREFLY ESTIMATED BLOOD LOSS: 5 mL. SPECIMENS REMOVED: Gallbladder. COMPLICATIONS: None. OPERATIVE FINDINGS: 1. Intrahepatic gallbladder adding complexity to the case. 2. Elongated infundibulum of the gallbladder with division at junction of the infundibulum and cystic duct. INDICATIONS: The patient is a 55-year-old male who presents with right upper quadrant abdominal pain including gallbladder polyp. Robotic assisted laparoscopic approach was described. Benefits and risks of the procedure including but not limited to bleeding, infection, injury to the biliary tree was described. Informed consent was obtained. DESCRIPTION OF PROCEDURE: Patient was brought to the operating room, placed in supine position. After general induction, the abdomen had been prepped and draped in standard sterile fashion. The robotic da Esau XI system was primed. After a timeout protocol was performed, the patient had been prepped and draped in standard sterile fashion. The patient was injected with indocyanine green. A 5 mm 0 degrees laparoscopic trocar entry was performed along the left upper quadrant. The abdomen insufflated to 15 mmHg pressure which was tolerated well. Diagnostic laparoscopy demonstrated no injury to bowel viscera or mesentery. The liver surface was unremarkable. Next, two 8 mm robotic ports were placed along the right upper abdomen. The camera 8-mm port was maintained along the epigastrium. Another 8 mm port was placed along the left upper abdominal wall after exchanging the 5 mm port. Please note that the ports were placed at least 10 to 15 cm away from the target anatomy of the gallbladder. The robot was docked along the left lateral abdomen. The patient was repositioned in reverse Trendelenburg position. Using a grasper for arm 3, a grasper for arm 4, including hook cautery for arm 1, the robotic system was docked and primed as described. Instruments were interchanged by the contract assistant including hook cautery, Bovie cautery and clip appliers. I had sat at the console. The gallbladder was intrahepatic adding complexity to the case. Careful dissection was performed at the infundibulum and cystic structures using blunt dissection. The infundibulum including proximal body of the gallbladder was embedded into the liver parenchyma. A dome down technique was performed starting from the fundus to the infundibulum allowing further mobility of the gallbladder. The infundibulum was elongated. The cystic duct was visualized using indocyanine green and within normal limits. The infundibulum was dissec newton free from surrounding tissues. The junction of the infundibulum and cystic duct was prepared for division. FIREFLY was used to identify the cystic artery and cystic structures. A critical view of safety was obtained looking posteriorly and anteriorly to the infundibulum and its junction. Large PLASTIC clips were used throughout the entire case. Using a clip printed circuit boards beveler, 2 clips were placed at the junction of the infundibulum and cystic duct. The cystic duct was divided distal to the 2 clips at the infundibulum. Next, the cystic artery was cauterized. Hemostasis was checked and found to be adequate. The robot was undocked. I re-scrubbed into the case. Using a 10 mm Endo Catch bag via the left upper quadrant incision, the specimen was removed from the abdominal cavity. All pneumoperitoneum instruments were evacuated from the abdominal cavity. The incisions were reapproximated using 4-0 Monocryl in an interrupted subcuticular fashion. Fascial defects were less than 8 mm in size. Please note along the trocar sites, local anesthetic was placed as a field block prior to insertion of all instruments. Liquid glue was applied to the skin. At the end of the procedure needle, sponge, and instrument count had been verified correct by the assembler surgical garment. The patient was transferred to postanesthesia care unit in stable condition. Intraoperative films were shared with the patient's family. Postoperatively, patient had transient hypertension preoperatively and postoperatively however resolved in Phase II after voiding. Additional laboratory results were requested in Phase I recovery as preoperative labs for comprehensive metabolic panel were absent. Clinically, patient reported he was doing well. Patient was stable for discharge. Plan - Discharge Summary Discharge Rx Participant: No New Discharge Prescriptions: New Simethicone [Gas-X] 125 mg PO AC-TID PRN #20 capsule PRN Reason: Pain Ibuprofen [Motrin] 600 mg PO Q8HR PRN #30 tab PRN Reason: Pain Acetaminophen Tab [Tylenol Tab] 1,000 mg PO Q6HR PRN #30 tablet PRN Reason: Pain Continue Atorvastatin [Lipitor] 20 mg PO HS Irbesartan [Avapro] 150 mg PO DAILY Discharge Medication List Atorvastatin [Lipitor] 20 mg PO HS 12/13/18 [History] Irbesartan [Avapro] 150 mg PO DAILY 03/11/21 [History] Acetaminophen Tab [Tylenol Tab] 1,000 mg PO Q6HR PRN #30 tablet 04/18/21 [Rx] Ibuprofen [Motrin] 600 mg PO Q8HR PRN #30 tab 04/18/21 [Rx] Simethicone [Gas-X] 125 mg PO AC-TID PRN #20 capsule 04/18/21 [Rx] Follow up Appointment(s)/Referral(s): Lashae Gregg MD [STAFF PHYSICIAN] - 04/22/21 Patient Instructions/Handouts: *[facility] - Managing Your Pain After Surgery Without Opioids, *[facility] - Scopalamine Patch Instructions, Low Fat Diet (DC), Laparoscopic Cholecystectomy (DC) Activity/Diet/Wound Care/Special Instructions: Recommend low-fat diet for the next 2 days. No lifting over 10 pounds in 2 weeks until May 02. October shower. No bath tub soaks for two weeks until May 02.. Diet as tolerated. Use Tylenol, simethicone and ibuprofen or Aleve scheduled for the next 24-48 hours for best pain relief. Use ice along incisions for today to prevent swelling. Discharge Disposition: HOME SELF-CARE
[2021-04-18] MEDS: HYDROmorphone 0.5 MG/0.5 ML SYRINGE IVP PRN ×4 (16:52→17:30)
[2021-04-18] MEDS ORDERED: LABETALOL 5 MG/ML VIAL MDV IVP ONE (17:30)
[2021-04-18] MEDS ORDERED: hydrALAZINE HCL 20 MG/ML 1 ML VIAL ONE (17:52)
[2021-04-18] MEDS ORDERED: hydrALAZINE HCL 20 MG/ML 1 ML VIAL IVP ONE (17:56)
[2021-04-18] MEDS ORDERED: HYDROmorphone 0.5 MG/0.5 ML SYRINGE IVP ONE (18:08)
[2021-04-18] MEDS ORDERED: LACTATED RINGERS 1,000 ML IV ONE (18:25)
[2021-04-18 18:57] VITALS: BP 125/77; PULSE 95
[2021-04-18 19:46] LABS: ALT 67 U/L (4-49); AST 48 U/L (17-59); African American GFR (CKD) >90 (>60 ml/min/1.73 sqM); Albumin 4.5 g/dL (3.5-5.0); Alkaline Phosphatase 82 U/L (38-126); Anion Gap 13 mmol/L; Blood Urea Nitrogen 25 mg/dL (9-20); Calcium 9.1 mg/dL (8.4-10.2); Carbon Dioxide 19 mmol/L (22-30); Chloride 101 mmol/L (98-107); Glucose 287 mg/dL (74-99); Non-African American GFR(CKD) >90 (>60 ml/min/1.73 sqM); Potassium 4.2 mmol/L (3.5-5.1); Sodium 133 mmol/L (137-145); Total Bilirubin 2.6 mg/dL (0.2-1.3)
== END 2021-04-18 19:31 | disposition home or self-care (01) ==
LOC: OR 13:03
PROVIDERS: ATTEND Surgery Plastic and Reconstructive Surgery
DX: K81.1 Chronic cholecystitis (principal); I11.9 Hypertensive heart disease without heart failure; E80.4 Gilbert syndrome; E78.5 Hyperlipidemia, unspecified
CPT/HCPCS: 47563; 80053; 84132; J2250; J0360; J1100; J2710; J0690; J2405; J2001; J3010; J1170 ×2; J1885; J0330; J2704; J1644; 88304

== ENCOUNTER 2021-04-19 09:34 | Inpatient (IN) | payer BC ==
[2021-04-19] MEDS ORDERED: HYDROmorphone 0.5 MG/0.5 ML SYRINGE IVP STA ×2 (10:03→11:12)
[2021-04-19] MEDS ORDERED: SODIUM CHLORIDE 0.9% 1,000 ML IV STA (10:03)
[2021-04-19] MEDS ORDERED: ONDANSETRON 4 MG/2 ML VIAL IVP STA (10:04)
--- NOTE | 2021-04-19 10:07 | ED ---
General Adult HPI - General Chief complaint: Abdominal Pain Stated complaint: Post OP Complications Time Seen by Provider: 04/19/21 09:50 Source: patient Mode of arrival: wheelchair Limitations: no limitations - History of Present Illness Initial comments: 55-year-old male with a past medical history of hyperlipidemia, hypertension presents to the emergency room for a chief complaint of abdominal pain. Patient reports he had a cholecystectomy by Dr. Gregg yesterday. States that about the evening his abdominal pain worsen. States it is on the right side. Today he is having pain in his neck and right shoulder as well. He did vomit once last night.Patient has no other complaints at this time including shortness of breath, chest pain, headache, or visual changes. - Related Data Home Medications Medication Instructions Recorded Confirmed Atorvastatin [Lipitor] 20 mg PO HS 12/13/18 04/18/21 Irbesartan [Avapro] 150 mg PO DAILY 03/11/21 04/18/21 Previous Rx's Medication Instructions Recorded Acetaminophen Tab [Tylenol Tab] 1,000 mg PO Q6HR PRN #30 tablet 04/18/21 Ibuprofen [Motrin] 600 mg PO Q8HR PRN #30 tab 04/18/21 Simethicone [Gas-X] 125 mg PO AC-TID PRN #20 capsule 04/18/21 Allergies Allergy/AdvReac Type Severity Reaction Status Date / Time No Known Allergies Allergy Verified 04/19/21 09:48 Review of Systems ROS Statement: Those systems with pertinent positive or pertinent negative responses have been documented in the HPI. ROS Other: All systems not noted in ROS Statement are negative. Past Medical History Past Medical History: Hyperlipidemia, Hypertension Additional Past Medical History / Comment(s): hx kidney stones, arrythmia History of Any Multi-Drug Resistant Organisms: None Reported Past Surgical History: Adenoidectomy, Cholecystectomy, Hernia Repair, Tonsillectomy Additional Past Surgical History / Comment(s): polyps removed from sinus, lithotripsy,. umbilical hernia and lonny inguinal hernia surgery Past Anesthesia/Blood Transfusion Reactions: No Reported Reaction Past Psychological History: No Psychological Hx Reported Smoking Status: Never smoker Past Alcohol Use History: None Reported Past Drug Use History: None Reported - Past Family History Mother Family Medical History: No Reported History General Exam Limitations: no limitations General appearance: alert, in no apparent distress Head exam: Present: atraumatic Eye exam: Present: normal appearance, PERRL, EOMI. Absent: scleral icterus, conjunctival injection ENT exam: Present: normal exam, mucous membranes moist Neck exam: Present: normal inspection, full ROM. Absent: tenderness Respiratory exam: Present: normal lung sounds bilaterally. Absent: respiratory distress, wheezes Cardiovascular Exam: Present: regular rate, normal rhythm, normal heart sounds GI/Abdominal exam: Present: soft, tenderness (R upper and lower abdominal tenderness, no L sided tenderness), normal bowel sounds, other (well healing incisions noted). Absent: distended Neurological exam: Present: alert Course Vital Signs 04/19/21 04/19/21 09:45 11:42 Temperature 99.2 F Pulse Rate 83 94 Respiratory 18 18 Rate Blood Pressure 157/90 182/98 O2 Sat by Pulse 94 L 92 L Oximetry Medical Decision Making - Medical Decision Making Vitals are stable. Patient does have mild abdominal tenderness. Leukocytosis with a left shift is noted. CMP does show evidence of dehydration with an elevated bilirubin of 3.8. X-ray KUB shows a correlate for fecal stasis and a possible basilar pneumonia or atelectasis. Patient is not having a cough. Case was discussed with Dr. Gregg, requests a CAT scan, HIDA scan, and ultrasound be ordered. Patient will be admitted pending these results. - Lab Data Result diagrams: 04/19/21 10:10 04/19/21 11:40 Lab Results 04/19/21 04/19/21 04/19/21 Range/Units 10:10 10:10 11:40 WBC 27.5 H (3.8-10.6) k/uL RBC 5.78 (4.30-5.90) m/uL Hgb 17.1 (13.0-17.5) gm/dL Hct 48.6 (39.0-53.0) % MCV 84.1 (80.0-100.0) fL MCH 29.6 (25.0-35.0) pg MCHC 35.2 (31.0-37.0) g/dL RDW 13.3 (11.5-15.5) % Plt Count 183 (150-450) k/uL MPV 8.8 Neutrophils % 90 % Lymphocytes % 3 % Monocytes % 6 % Eosinophils % 1 % Basophils % 0 % Neutrophils # 24.8 H (1.3-7.7) k/uL Lymphocytes # 0.8 L (1.0-4.8) k/uL Monocytes # 1.6 H (0-1.0) k/uL Eosinophils # 0.1 (0-0.7) k/uL Basophils # 0.0 (0-0.2) k/uL Sodium 133 L (137-145) mmol/L Potassium 4.2 (3.5-5.1) mmol/L Chloride 101 (98-107) mmol/L Carbon Dioxide 23 (22-30) mmol/L Anion Gap 9 mmol/L BUN 22 H (9-20) mg/dL Creatinine 0.68 (0.66-1.25) mg/dL Est GFR (CKD-EPI)AfAm >90 (>60 ml/min/1.73 sqM) Est GFR (CKD-EPI)NonAf >90 (>60 ml/min/1.73 sqM) Glucose 192 H (74-99) mg/dL Calcium 9.6 (8.4-10.2) mg/dL Total Bilirubin 3.8 H (0.2-1.3) mg/dL AST 46 (17-59) U/L ALT 81 H (4-49) U/L Alkaline Phosphatase 75 (38-126) U/L Total Protein 7.0 (6.3-8.2) g/dL Albumin 4.4 (3.5-5.0) g/dL Amylase 54 (30-110) U/L Lipase 46 (23-300) U/L Urine Color Yellow Urine Appearance Clear (Clear) Urine pH 5.5 (5.0-8.0) Ur Specific [place] 1.030 (1.001-1.035) Urine Protein Trace H (Negative) Urine Glucose (UA) 4+ H (Negative) Urine Ketones 1+ H (Negative) Urine Blood Negative (Negative) Urine Nitrite Negative (Negative) Urine Bilirubin Negative (Negative) Urine Urobilinogen 2.0 (<2.0) mg/dL Ur Leukocyte Esterase Negative (Negative) Disposition Clinical Impression: Postoperative upper abdominal pain, Leukocytosis, Hyperbilirubinemia Disposition: ADMITTED IP TO THIS HOSP Is patient prescribed a controlled substance at d/c from ED?: No Referrals: Santiago Jean Baptiste MD [Primary Care Provider] - 1-2 days Time of Disposition: 12:55
[2021-04-19 10:32] LABS: Basophils % (A) 0 %; Eosinophils # (A) 0.1 k/uL (0-0.7); Eosinophils % (A) 1 %; HCT 48.6 % (39.0-53.0); HGB 17.1 gm/dL (13.0-17.5); Lymphocytes # (A) 0.8 k/uL (1.0-4.8); Lymphocytes % (A) 3 %; MCH 29.6 pg (25.0-35.0); MCHC 35.2 g/dL (31.0-37.0); MCV 84.1 fL (80.0-100.0); Mean Platelet Volume 8.8; Monocytes # (A) 1.6 k/uL (0-1.0); Monocytes % (A) 6 %; Neutrophils # (A) 24.8 k/uL (1.3-7.7); Neutrophils % (A) 90 %; Platelet Count 183 k/uL (150-450); RBC 5.78 m/uL (4.30-5.90); RDW 13.3 % (11.5-15.5); WBC 27.5 k/uL (3.8-10.6)
--- NOTE | 2021-04-19 10:47 | XR ---
KUB HISTORY: Abdomen pain Frontal KUB and 2 images correlated to prior KUB 07/02/2014, CT scan 01/08/2021 Patchy densities present at the lung bases. There is retained fecal debris throughout the distributio n of the colon. There is no evident bowel obstruction or pneumoperitoneum. Bone mineralization is nor mal. Probable phleboliths present within the pelvis. IMPRESSION: Correlate for fecal stasis. Possible basilar pneumonia or atelectasis.
[2021-04-19 10:51] LABS: Appearance,Urine Clear (Clear); Bilirubin,Urine Negative (Negative); Blood,Urine Negative (Negative); Color,Urine Yellow; Glucose,Urine (UA) 4+ (Negative); Ketones,Urine 1+ (Negative); Leukocyte Esterase,Urine Negative (Negative); Nitrite,Urine Negative (Negative); PH, Urine 5.5 (5.0-8.0); Protein,Urine Trace (Negative)
[2021-04-19 12:27] LABS: ALT 81 U/L (4-49); AST 46 U/L (17-59); African American GFR (CKD) >90 (>60 ml/min/1.73 sqM); Albumin 4.4 g/dL (3.5-5.0); Alkaline Phosphatase 75 U/L (38-126); Amylase 54 U/L (30-110); Anion Gap 9 mmol/L; Blood Urea Nitrogen 22 mg/dL (9-20); Calcium 9.6 mg/dL (8.4-10.2); Carbon Dioxide 23 mmol/L (22-30); Chloride 101 mmol/L (98-107); Glucose 192 mg/dL (74-99); Lipase 46 U/L (23-300); Non-African American GFR(CKD) >90 (>60 ml/min/1.73 sqM); Potassium 4.2 mmol/L (3.5-5.1); Sodium 133 mmol/L (137-145); Total Bilirubin 3.8 mg/dL (0.2-1.3)
[2021-04-19] MEDS ORDERED: NALOXONE 0.4 MG/ML 1 ML VIAL IV PRN (12:47)
[2021-04-19] MEDS ORDERED: ONDANSETRON 4 MG/2 ML VIAL IVP PRN (12:47)
[2021-04-19] MEDS: MORPHINE SULFATE 4 MG/ML SYRINGE IV PRN ×2 (13:09→16:30)
--- NOTE | 2021-04-19 13:19 | P.GSHP ---
History of Present Illness H&P Date: 04/19/21 CHIEF COMPLAINT: Right upper quadrant abdominal pain, less than 12 hours HISTORY OF PRESENT ILLNESS: The patient is a 55 year old male status post robotic cholecystectomy last night. Yesterday evening, patient was discharged home as he reports his postoperative pain was well-controlled. No reports of nausea and vomiting. Hypertension prior to and post surgery had improved. He had gone home than evening and had corn, mashed potatoes and chicken prior to going to bed. Reports that at 2 AM in the morning he had severe right upper quadrant abdominal cramping 10 out of 10. He has not passed flatus. Reports mild distention. He reports emesis. He presents to the emergency room due to severe right upper quadrant abdominal pain. PAST MEDICAL HISTORY: See list and reviewed PAST SURGICAL HISTORY: See list and reviewed MEDICATIONS: See list and reviewed ALLERGIES: See list and reviewed SOCIAL HISTORY: See list and reviewed FAMILY HISTORY: See list and reviewed REVIEW OF ORGAN SYSTEMS: CONSTITUTIONAL: No fevers or chills. No recent weight loss. EYES: Denies any trouble with vision. No glasses. HEENT: No difficulties with hearing. No nosebleeds. No difficulty swallowing. RESPIRATORY: Denies pneumonia. Denies any troubles with breathing or dyspnea on exertion. CARDIOVASCULAR: Has hyperlipidemia and hypertension. GASTROINTESTINAL: Has hyperbilirubinemia due to Gilbert syndrome. Pre-existing elevated liver enzymes. GENITOURINARY: Denies any blood in urine or increased urinary frequency. NEUROLOGICAL: Denies any numbness or tingling along the distal extremities. No seizure disorders or headaches. MUSCULOSKELETAL: Denies any back pain, stiffness or joint arthritis. SKIN: No current skin cancer. No rash. PSYCHIATRIC: Denies current depression or suicidal thoughts. ENDOCRINE: Denies current thyroid disorders. Denies any blood sugar glucose intolerance. HEME/LYMPHATIC: Denies any lumps and bumps around the neck. No recent deep venous thrombosis. ALLERGY/IMMUNOLOGY: No immunoglobulin therapy. No immune deficiencies. BREAST: Denies current breast lumps, pain or nipple discharge. PHYSICAL EXAM: VITALS: Reviewed CONSTITUTIONAL: Well developed and in mild distress. EYES: Conjuctivae without sclera icterus. Extraocular movements grossly intact . HEAD, EARS, NOSE, THROAT: Moist buccal mucosa. Head is atraumatic, normocephalic. Hears conversational speech. No nasal drainage. NECK: No JV distention. No thyroidomegaly. RESPIRATORY: Non-labored respirations and equal bilateral excursions. No gross wheezes. CARDIOVASCULAR: Regular rate and rhythm. Extremities without moderate edema. Palpable 2+ radial pulses. ABDOMEN: Tender right upper quadrant. LYMPH: No neck lymphadenopathy. MUSCULOSKELETAL: No clubbing cyanosis. SKIN: Warm and well perfused with good skin turgor. NEUROLOGIC: Cranial nerves II through XII grossly intact. Sensation upper and extremities intact. No focal or lateralizing signs. PSYCH: Appropriate affect. Alert and oriented to person, place and time. Displays appropriate insight. CLINCAL LABS: Reviewed. WBC 27,000 due to stress response. Total bilirubin elevated from 2.8-3.5. Hemoglobin elevated at 17.1. IMAGING: Pending RADIOLOGY: Pending ASSESSMENT: 1. Acute right upper quadrant abdominal pain status post cholecystectomy 2. Gilbert syndrome with hyperbilirubinemia 3. Leukocytosis due to stress response and dehydration PLAN: 1. Recommend CT of the abdomen and pelvis for further assessment of abdominal pain. 2. Right upper quadrant ultrasound to assess common bile duct 3. HIDA scan to evaluate for bile leak 4. IV fluid hydration for prolonged nothing by mouth status yesterday including dehydration 5. May start IV antibiotics 6. Admission described 7. May need transfer to tertiary care center for presence of choledocholithiasis for ERCP 8. Above plan reviewed with the ER provider Thank you for this kind consultation. Past Medical History Past Medical History: Hyperlipidemia, Hypertension Additional Past Medical History / Comment(s): hx kidney stones, arrythmia History of Any Multi-Drug Resistant Organisms: None Reported Past Surgical History: Adenoidectomy, Cholecystectomy, Hernia Repair, Tonsillectomy Additional Past Surgical History / Comment(s): polyps removed from sinus, lithotripsy,. umbilical hernia and lonny inguinal hernia surgery Past Anesthesia/Blood Transfusion Reactions: No Reported Reaction Past Psychological History: No Psychological Hx Reported Smoking Status: Never smoker Past Alcohol Use History: None Reported Past Drug Use History: None Reported - Past Family History Mother Family Medical History: No Reported History Medications and Allergies Home Medications Medication Instructions Recorded Confirmed Type Atorvastatin [Lipitor] 20 mg PO HS 12/13/18 04/18/21 History Irbesartan [Avapro] 150 mg PO DAILY 03/11/21 04/18/21 History Acetaminophen Tab [Tylenol Tab] 1,000 mg PO Q6HR PRN #30 tablet 04/18/21 Rx Ibuprofen [Motrin] 600 mg PO Q8HR PRN #30 tab 04/18/21 Rx Simethicone [Gas-X] 125 mg PO AC-TID PRN #20 capsule 04/18/21 Rx Allergies Allergy/AdvReac Type Severity Reaction Status Date / Time No Known Allergies Allergy Verified 04/19/21 09:48 Surgical - Exam Vital Signs Temp Pulse Resp BP Pulse Ox 99.2 F 83 18 157/90 94 L 04/19/21 09:45 04/19/21 09:45 04/19/21 09:45 04/19/21 09:45 04/19/21 09:45 Results - Labs 04/19/21 10:10 04/19/21 11:40 Abnormal Lab Results - Last 24 Hours (Table) 04/19/21 04/19/21 04/19/21 Range/Units 10:10 10:10 11:40 WBC 27.5 H (3.8-10.6) k/uL Neutrophils # 24.8 H (1.3-7.7) k/uL Lymphocytes # 0.8 L (1.0-4.8) k/uL Monocytes # 1.6 H (0-1.0) k/uL Sodium 133 L (137-145) mmol/L BUN 22 H (9-20) mg/dL Glucose 192 H (74-99) mg/dL Total Bilirubin 3.8 H (0.2-1.3) mg/dL ALT 81 H (4-49) U/L Urine Protein Trace H (Negative) Urine Glucose (UA) 4+ H (Negative) Urine Ketones 1+ H (Negative) Diabetes panel 04/19/21 Range/Units 11:40 Sodium 133 L (137-145) mmol/L Potassium 4.2 (3.5-5.1) mmol/L Chloride 101 (98-107) mmol/L Carbon Dioxide 23 (22-30) mmol/L BUN 22 H (9-20) mg/dL Creatinine 0.68 (0.66-1.25) mg/dL Glucose 192 H (74-99) mg/dL Calcium 9.6 (8.4-10.2) mg/dL AST 46 (17-59) U/L ALT 81 H (4-49) U/L Alkaline Phosphatase 75 (38-126) U/L Total Protein 7.0 (6.3-8.2) g/dL Albumin 4.4 (3.5-5.0) g/dL Calcium panel 04/19/21 Range/Units 11:40 Calcium 9.6 (8.4-10.2) mg/dL Albumin 4.4 (3.5-5.0) g/dL Pituitary panel 04/19/21 Range/Units 11:40 Sodium 133 L (137-145) mmol/L Potassium 4.2 (3.5-5.1) mmol/L Chloride 101 (98-107) mmol/L Carbon Dioxide 23 (22-30) mmol/L BUN 22 H (9-20) mg/dL Creatinine 0.68 (0.66-1.25) mg/dL Glucose 192 H (74-99) mg/dL Calcium 9.6 (8.4-10.2) mg/dL Adrenal panel 04/19/21 Range/Units 11:40 Sodium 133 L (137-145) mmol/L Potassium 4.2 (3.5-5.1) mmol/L Chloride 101 (98-107) mmol/L Carbon Dioxide 23 (22-30) mmol/L BUN 22 H (9-20) mg/dL Creatinine 0.68 (0.66-1.25) mg/dL Glucose 192 H (74-99) mg/dL Calcium 9.6 (8.4-10.2) mg/dL Total Bilirubin 3.8 H (0.2-1.3) mg/dL AST 46 (17-59) U/L ALT 81 H (4-49) U/L Alkaline Phosphatase 75 (38-126) U/L Total Protein 7.0 (6.3-8.2) g/dL Albumin 4.4 (3.5-5.0) g/dL Assessment and Plan (1) Gilbert's disease Current Visit: Yes Status: Acute Code(s): E80.4 - GILBERT SYNDROME SNOMED Code(s): 54251784 (2) Status post cholecystectomy Current Visit: Yes Status: Acute Code(s): Z90.49 - ACQUIRED ABSENCE OF OTHER SPECIFIED PARTS OF DIGESTIVE TRACT SNOMED Code(s): 692844573 (3) Right upper quadrant abdominal pain Current Visit: Yes Status: Acute Code(s): R10.11 - RIGHT UPPER QUADRANT PAIN SNOMED Code(s): 222753559 (4) Hyperbilirubinemia Current Visit: Yes Status: Acute Code(s): E80.6 - OTHER DISORDERS OF BILIRUBIN METABOLISM SNOMED Code(s): 58929779 (5) Leukocytosis Current Visit: Yes Status: Acute Code(s): D72.829 - ELEVATED WHITE BLOOD CELL COUNT, UNSPECIFIED SNOMED Code(s): 948454525
[2021-04-19] MEDS: SODIUM CHLORIDE 0.9% 1,000 ML IV SCH (14:22)
[2021-04-19] MEDS: HYDROmorphone 0.5 MG/0.5 ML SYRINGE IVP PRN ×2 (14:37→19:56)
--- NOTE | 2021-04-19 14:46 | CT ---
EXAMINATION TYPE: CT abdomen pelvis w con DATE OF EXAM: 04/19/2021 COMPARISON: 01/08/2021 HISTORY: Pain, post op Lap Cholecystectomy CT DLP: 996.2 mGycm Automated exposure control for dose reduction was used. CONTRAST: Performed with IV Contrast, patient injected with 100 mL of Isovue 300. Images obtained from the diaphragm to the floor the pelvis with IV contrast. There is some infiltrate and atelectasis at both lung bases. Heart size is normal. There is no perica rdial effusion. There is no pleural effusion. Liver spleen stomach pancreas appear intact. Bile ducts are not dilated. There is no adrenal mass. Kidneys show satisfactory contrast opacification. There is no hydronephrosi s. Ureters are not dilated. There is no retroperitoneal adenopathy. Bladder distends smoothly. There is small amount of free fluid in the pelvis. This fluid in the right paracolic gutter. The appe ndix is partly filled with air and is posterior measuring up to 8 mm. No definite inflammation of the appendix. There is fat-containing 2 cm umbilical hernia. There is no evidence of a bowel obstruction. There is no free air. The lumbar vertebra have normal alignment. There is no compression fracture. Bony pelvis is intact. H ip joints are intact. I see no intestinal wall thickening. IMPRESSION: There is some mild abdominal ascites fluid. A cause for the fluid is not clearly seen. Appendix does not show sign of significant thickening to suggest appendicitis. Appendix is borderline thickened. Bilateral lower lobe mild pulmonary infiltrates and atelectasis. Pulmonary abnormalities appear new compared to old exam. Ascites fluid is new compared to old exam. A ppendix is not changed.
--- NOTE | 2021-04-19 15:48 | US ---
EXAMINATION TYPE: US gallbladder DATE OF EXAM: 04/19/2021 COMPARISON: NONE CLINICAL HISTORY: pain. cholecystectomy yesterday 04/18/21. RUQ pain EXAM MEASUREMENTS: Liver Length: 16.8 cm Gallbladder Wall: Surgically absent Right Kidney: 10.6 x 4.8 x 4.7 cm extreme technical limitations due to large amount of overlying bowel content and patient in an upri ght position, unable to move due to pain Pancreas: Obscured by bowel gas Liver: limited evaluation, visualized portions appear wnl Gallbladder: Surgically absent. minimal amount of possible fluid noted, ? post operative changes Evidence for sonographic Haddad's sign: no CBD: Obscured by overlying bowel gas Right Kidney: no evidence of hydronephrosis IMPRESSION: There is cholecystectomy. Gallbladder absent. Common bile duct not seen but no dilation of the intrah epatic bile ducts.
[2021-04-19] MEDS ORDERED: HYDROmorphone 1 MG/ML 1 ML SYRINGE IVP PRN (16:30)
--- NOTE | 2021-04-19 16:49 | P.PN ---
Subjective Progress Note Date: 04/19/21 CHIEF COMPLAINT: Right upper quadrant abdominal pain, less than 12 hours HISTORY OF PRESENT ILLNESS: The patient is a 55 year old male status post robotic cholecystectomy last night. He has hypertension. He complains of gas pains along the shoulders. He has Gilbert''s syndrome with hyperbilirubinemia. REVIEW OF ORGAN SYSTEMS: No shortness of breath. No chest pain. PHYSICAL EXAM: VITALS: Reviewed CONSTITUTIONAL: Well developed and in mild distress. EYES: Conjuctivae with sclera icterus. Extraocular movements grossly intact. HEAD, EARS, NOSE, THROAT: Moist buccal mucosa. Head is atraumatic, normocephalic. Hears conversational speech. No nasal drainage. RESPIRATORY: Non-labored respirations and equal bilateral excursions. No gross wheezes. CARDIOVASCULAR: Regular rate and rhythm. Palpable 2+ radial pulses. ABDOMEN: Tender right upper quadrant. MUSCULOSKELETAL: No clubbing cyanosis. SKIN: Warm and well perfused with good skin turgor. NEUROLOGIC: Cranial nerves II through XII grossly intact. No focal or lateralizing signs. PSYCH: Appropriate affect. Alert and oriented to person, place and time. Displays appropriate insight. CLINCAL LABS: Reviewed. WBC 27,000 due to stress response. Total bilirubin elevated from 2.8-3.5. Hemoglobin elevated at 17.1. IMAGING: CT of the abdomen and pelvis reviewed without intra-ductal dilation. Coni-hepatic fluid identified. Atelectasis noted. This is my independent interpretation US right upper quadrant with CBD visualized limiting exam ASSESSMENT: 1. Acute right upper quadrant abdominal pain status post cholecystectomy 2. Gilbert syndrome with hyperbilirubinemia 3. Leukocytosis due to stress response and dehydration 4. Hypertensive urgency. PLAN: 1. HIDA scan pending to assess for bile leak 2. IV antibiotics started. 3. IV fluid hydration 4. Hospitalist consultation for hypertensive urgency. Objective - Vital Signs Vital signs: Vital Signs Temp 98.7 F 04/19/21 14:22 Pulse 86 04/19/21 14:22 Resp 18 04/19/21 14:22 BP 181/101 04/19/21 14:22 Pulse Ox 95 04/19/21 14:22 Intake & Output 04/18/21 04/19/21 04/19/21 18:59 06:59 18:59 Weight 79.379 kg Other: Voiding Method Toilet - Labs CBC & Chem 7: 04/19/21 10:10 04/19/21 11:40 Labs: Abnormal Lab Results - Last 24 Hours (Table) 04/19/21 04/19/21 04/19/21 Range/Units 10:10 10:10 11:40 WBC 27.5 H (3.8-10.6) k/uL Neutrophils # 24.8 H (1.3-7.7) k/uL Lymphocytes # 0.8 L (1.0-4.8) k/uL Monocytes # 1.6 H (0-1.0) k/uL Sodium 133 L (137-145) mmol/L BUN 22 H (9-20) mg/dL Glucose 192 H (74-99) mg/dL Total Bilirubin 3.8 H (0.2-1.3) mg/dL ALT 81 H (4-49) U/L Urine Protein Trace H (Negative) Urine Glucose (UA) 4+ H (Negative) Urine Ketones 1+ H (Negative) Assessment and Plan (1) Gilbert's disease Current Visit: Yes Status: Acute Code(s): E80.4 - GILBERT SYNDROME SNOMED Code(s): 13117335 (2) Status post cholecystectomy Current Visit: Yes Status: Acute Code(s): Z90.49 - ACQUIRED ABSENCE OF OTHER SPECIFIED PARTS OF DIGESTIVE TRACT SNOMED Code(s): 924872934 (3) Right upper quadrant abdominal pain Current Visit: Yes Status: Acute Code(s): R10.11 - RIGHT UPPER QUADRANT PAIN SNOMED Code(s): 594074826 (4) Hyperbilirubinemia Current Visit: Yes Status: Acute Code(s): E80.6 - OTHER DISORDERS OF BILIRUBIN METABOLISM SNOMED Code(s): 23060580 (5) Leukocytosis Current Visit: Yes Status: Acute Code(s): D72.829 - ELEVATED WHITE BLOOD CELL COUNT, UNSPECIFIED SNOMED Code(s): 460713564
[2021-04-19] MEDS: LOSARTAN 50 MG TAB PO SCH (17:03)
[2021-04-19] MEDS: PIPERACILLIN-TAZOBACTAM 3.375 GM in SODIUM CHLORIDE 0.9% 100 ML IVPB SCH (17:03)
[2021-04-19] MEDS: ACETAMINOPHEN IV (For NPO) 1,000 MG in EMPTY BAG 1 BAG IVPB SCH (17:47)
[2021-04-19] MEDS: SIMETHICONE 40 MG/0.6 ML DROPS 2,000 MG/30 ML BOTTLE PO SCH (17:48)
[2021-04-19] MEDS: KETOROLAC 15 MG/ML 1 ML VIAL IVP SCH (17:54)
[2021-04-19 18:03] LABS: Basophils # (A) 0.1 k/uL (0-0.2); Basophils % (A) 1 %; Eosinophils % (A) 0 %; HCT 53.9 % (39.0-53.0); HGB 18.4 gm/dL (13.0-17.5); Lymphocytes % (A) 5 %; MCH 30.1 pg (25.0-35.0); MCHC 34.1 g/dL (31.0-37.0); MCV 88.4 fL (80.0-100.0); Mean Platelet Volume 9.4; Monocytes # (A) 1.4 k/uL (0-1.0); Monocytes % (A) 7 %; Neutrophils # (A) 17.8 k/uL (1.3-7.7); Neutrophils % (A) 87 %; Platelet Count 132 k/uL (150-450); RDW 13.9 % (11.5-15.5); WBC 20.5 k/uL (3.8-10.6)
[2021-04-19 18:21] LABS: ALT 94 U/L (4-49); AST 70 U/L (17-59); African American GFR (CKD) >90 (>60 ml/min/1.73 sqM); Albumin 4.5 g/dL (3.5-5.0); Albumin/Globulin Ratio 1.5; Alkaline Phosphatase 98 U/L (38-126); Anion Gap 12 mmol/L; Blood Urea Nitrogen 19 mg/dL (9-20); Calcium 9.2 mg/dL (8.4-10.2); Carbon Dioxide 19 mmol/L (22-30); Chloride 102 mmol/L (98-107); Glucose 153 mg/dL (74-99); Non-African American GFR(CKD) >90 (>60 ml/min/1.73 sqM); Sodium 133 mmol/L (137-145); Total Bilirubin 4.2 mg/dL (0.2-1.3); Total Protein 7.5 g/dL (6.3-8.2)
[2021-04-19 18:22] LABS: Potassium 4.6 mmol/L (3.5-5.1)
[2021-04-19] MEDS ORDERED: SIMETHICONE 40 MG/0.6 ML DROPS 2,000 MG/30 ML BOTTLE PO SCH (18:30)
[2021-04-19] MEDS ORDERED: SODIUM CHLORIDE 0.9% 1,000 ML IV ONE (19:28)
[2021-04-20] MEDS: ACETAMINOPHEN IV (For NPO) 1,000 MG in EMPTY BAG 1 BAG IVPB SCH ×3 (00:04→12:12)
[2021-04-20] MEDS: SIMETHICONE 40 MG/0.6 ML DROPS 2,000 MG/30 ML BOTTLE PO SCH ×5 (00:05→22:35)
[2021-04-20] MEDS: KETOROLAC 15 MG/ML 1 ML VIAL IVP SCH ×5 (00:05→23:58)
[2021-04-20] MEDS: PIPERACILLIN-TAZOBACTAM 3.375 GM in SODIUM CHLORIDE 0.9% 100 ML IVPB SCH ×4 (00:18→23:59)
[2021-04-20] MEDS: SODIUM CHLORIDE 0.9% 1,000 ML IV SCH ×3 (03:46→12:13)
--- NOTE | 2021-04-20 04:43 | P.CONS ---
History of Present Illness - Reason for Consult Consult date: 04/20/21 - History of Present Illness The patient is a 55-year-old male with a PMH of hypertension, hyperlipidemia, and Gilbert's syndrome who is postop day #1 from robotic cholecystectomy who presented to the emergency room following discharge due to abdominal pain. The patient was admitted to the surgical service with medicine consulted. The patient reported excellent control of his pain, currently at a 0 out of 10. He denied any additional complaints. He denied fever, chills, cough, nausea, vomiting. Denied chest pain, shortness of breath. Reports compliance with all his medications at home. Review of systems: Pertinent positives and negatives as discussed in HPI, a complete review of systems was performed and all other systems are negative. Physical examination: General: non toxic, no distress, appears at stated age, normal weight Derm: no unusual rashes/lesions no unusual ecchymoses, warm, dry Head: atraumatic, normocephalic, symmetric Eyes: EOMI, no lid lag, anicteric sclera, pupils equal round reactive to light ENT: Nose and ears atraumatic, no thrush, no pharyngeal erythema Neck: No thyromegaly, no cervical lymphadenopathy, trachea midline, supple Mouth: no lip lesion, mucus membranes moist Cardiovascular: S1S2 reg, no murmur, positive posterior tibial pulse bilateral, no edema, capillary refill less than 2 seconds Lungs: CTA bilateral, no rhonchi, no rales , no accessory muscle use Abdominal: soft, nontender to palpation, no guarding, no appreciable organomegaly, normal bowel sounds, several small incisions noted without surrounding abnormalities Ext: no gross muscle atrophy, muscle strength 5 out of 5 in all 4 extremities grossly, no contractures, Neuro: CN II-XI grossly intact, light touch intact all 4 extremities, finger to nose within normal limits, Psych: Alert, oriented, appropriate affect Assessment/plan Chronic conditions: Hypertension, hyperlipidemia -Continue with losartan 50 mg (in place of Avapro) -Hold lipitor in setting of deranged LFTs Status post robotic cholecystectomy -Defer management including pain control to the surgery service Past Medical History Past Medical History: Hyperlipidemia, Hypertension Additional Past Medical History / Comment(s): hx kidney stones, arrythmia History of Any Multi-Drug Resistant Organisms: None Reported Past Surgical History: Adenoidectomy, Cholecystectomy, Hernia Repair, Tonsillectomy Additional Past Surgical History / Comment(s): polyps removed from sinus, lithotripsy,. umbilical hernia and lonny inguinal hernia surgery Past Anesthesia/Blood Transfusion Reactions: No Reported Reaction Past Psychological History: No Psychological Hx Reported Smoking Status: Never smoker Past Alcohol Use History: None Reported Past Drug Use History: None Reported - Past Family History Mother Family Medical History: No Reported History Medications and Allergies Home Medications Medication Instructions Recorded Confirmed Type Atorvastatin [Lipitor] 20 mg PO HS 12/13/18 04/19/21 History Irbesartan [Avapro] 150 mg PO DAILY 03/11/21 04/19/21 History Acetaminophen Tab [Tylenol Tab] 1,000 mg PO Q6HR PRN #30 tablet 04/18/21 04/19/21 Rx Ibuprofen [Motrin] 600 mg PO Q8HR PRN #30 tab 04/18/21 04/19/21 Rx Simethicone [Gas-X] 125 mg PO AC-TID PRN #20 capsule 04/18/21 04/19/21 Rx Allergies Allergy/AdvReac Type Severity Reaction Status Date / Time No Known Allergies Allergy Verified 04/19/21 14:07 Physical Exam Vitals: Vital Signs Temp Pulse Pulse Resp BP BP Pulse Ox 04/19/21 19:10 97.4 F L 86 166/97 95 04/19/21 14:22 98.7 F 86 18 181/101 95 04/19/21 13:39 94 18 163/98 94 L 04/19/21 11:42 94 18 182/98 92 L 04/19/21 09:45 99.2 F 83 18 157/90 94 L Intake and Output 04/19/21 04/19/21 04/20/21 14:59 22:59 06:59 Other: Voiding Method Toilet # Voids 2 Weight 79.379 kg Results CBC & Chem 7: 04/19/21 17:13 04/19/21 17:13 Labs: Abnormal Lab Results - Last 24 Hours (Table) 04/19/21 04/19/21 04/19/21 Range/Units 10:10 10:10 11:40 WBC 27.5 H (3.8-10.6) k/uL RBC (4.30-5.90) m/uL Hgb (13.0-17.5) gm/dL Hct (39.0-53.0) % Plt Count (150-450) k/uL Neutrophils # 24.8 H (1.3-7.7) k/uL Lymphocytes # 0.8 L (1.0-4.8) k/uL Monocytes # 1.6 H (0-1.0) k/uL Sodium 133 L (137-145) mmol/L Carbon Dioxide (22-30) mmol/L BUN 22 H (9-20) mg/dL Glucose 192 H (74-99) mg/dL Total Bilirubin 3.8 H (0.2-1.3) mg/dL AST (17-59) U/L ALT 81 H (4-49) U/L Urine Protein Trace H (Negative) Urine Glucose (UA) 4+ H (Negative) Urine Ketones 1+ H (Negative) 04/19/21 04/19/21 Range/Units 17:13 17:13 WBC 20.5 H (3.8-10.6) k/uL RBC 6.10 H (4.30-5.90) m/uL Hgb 18.4 H (13.0-17.5) gm/dL Hct 53.9 H (39.0-53.0) % Plt Count 132 L (150-450) k/uL Neutrophils # 17.8 H (1.3-7.7) k/uL Lymphocytes # (1.0-4.8) k/uL Monocytes # 1.4 H (0-1.0) k/uL Sodium 133 L (137-145) mmol/L Carbon Dioxide 19 L (22-30) mmol/L BUN (9-20) mg/dL Glucose 153 H (74-99) mg/dL Total Bilirubin 4.2 H (0.2-1.3) mg/dL AST 70 H (17-59) U/L ALT 94 H (4-49) U/L Urine Protein (Negative) Urine Glucose (UA) (Negative) Urine Ketones (Negative)
--- NOTE | 2021-04-20 08:45 | NM ---
EXAMINATION TYPE: NM hepatobiliary wo EF DATE OF EXAM: 04/20/2021 COMPARISON: Prior exam 04/10/2021 hepatobiliary scan, CT 04/19/2021 HISTORY: Status post cholecystectomy, abdominal pain TECHNIQUE: After the intravenous administration of 5.7 mCi Tc 99m Mebrofenin hepatobiliary scintigrap hy is performed. Immediate images post injection. FINDINGS: There is prompt homogenous uptake of radiopharmaceutical within the liver. Small bowel activity is id entified. Minimal pharmaceutical accumulates in the region of the soledad and subsequently tracks towar ds the inferior margin of the right lobe of the liver where it accumulates on delayed images. IMPRESSION: Findings consistent with bile leak A Red level critical message alert has been initiated for Lashae Gregg MD via the [employer] Critical Results System on 04/20/2021 8:42 AM. This message alert has been sent to Lashae burleson MD via the preferences provided by the clinician for the receipt of Radiology Critical Finding s. Message ID [id number].
[2021-04-20] MEDS: LOSARTAN 50 MG TAB PO SCH (08:47)
[2021-04-20] MEDS: HYDROmorphone 0.5 MG/0.5 ML SYRINGE IVP PRN (08:50)
[2021-04-20] MEDS: MORPHINE SULFATE 4 MG/ML SYRINGE IV PRN (10:14)
[2021-04-20 10:35] LABS: Basophils % (A) 0 %; Eosinophils # (A) 0.3 k/uL (0-0.7); Eosinophils % (A) 2 %; HCT 46.6 % (39.0-53.0); HGB 15.8 gm/dL (13.0-17.5); Lymphocytes # (A) 0.9 k/uL (1.0-4.8); Lymphocytes % (A) 6 %; MCV 85.4 fL (80.0-100.0); Mean Platelet Volume 8.4; Monocytes # (A) 0.9 k/uL (0-1.0); Monocytes % (A) 6 %; Neutrophils # (A) 12.8 k/uL (1.3-7.7); Neutrophils % (A) 85 %; Platelet Count 137 k/uL (150-450); RBC 5.46 m/uL (4.30-5.90); RDW 13.2 % (11.5-15.5)
[2021-04-20 10:46] LABS: ALT 103 U/L (4-49); AST 53 U/L (17-59); African American GFR (CKD) >90 (>60 ml/min/1.73 sqM); Albumin/Globulin Ratio 1.6; Alkaline Phosphatase 73 U/L (38-126); Anion Gap 9 mmol/L; Bilirubin,Unconjugated 4.2 mg/dL (0.0-1.1); Blood Urea Nitrogen 16 mg/dL (9-20); Calcium 9.2 mg/dL (8.4-10.2); Carbon Dioxide 22 mmol/L (22-30); Chloride 106 mmol/L (98-107); Globulin 2.5 g/dL; Glucose 153 mg/dL (74-99); Non-African American GFR(CKD) >90 (>60 ml/min/1.73 sqM); Potassium 4.1 mmol/L (3.5-5.1); Sodium 137 mmol/L (137-145); Total Bilirubin 4.8 mg/dL (0.2-1.3); Total Protein 6.5 g/dL (6.3-8.2)
--- NOTE | 2021-04-20 12:13 | P.PN ---
Progress Note - Text Progress Note Date: 04/20/21 Received consult for pt regarding concern of polycythemia. Full consult to follow in am, however pt's chart reviewed and discussed case with nursing staff. Pt had recent cholecystectomy. CBC prior to surgery normal. Discharged and comes back with abdominal pain and CBC currently with WBC 27.5, Hgb 17.1, plt 183, and on repeat, WBC 20, Hgb 18.4, plt 132. Discussed with nursing staff. Pt had vomiting prior to admission. I suspect his leukocytosis is reactive, thrombocytopenia is normal post op thrombcytopenia, and polycythemia is due to dehydration. He had repeat CBC this am, with WBC 15, Hgb 15.8, plt 137. At this time will hold off on further work up and monitor. Doubt this is primary polycythemia.
--- NOTE | 2021-04-20 12:45 | P.PN ---
Subjective Progress Note Date: 04/20/21 Hospital course: The patient is a very pleasant 55-year-old male with a past medical history of hypertension, hyperlipidemia, and Gilbert's syndrome. He presented to the emergency department on 04/19/21 with a chief complaint of uncontrolled abdominal pain status post robotic laparoscopic cholecystectomy completed by Dr. Calle on 04/18/21. In the emergency department KUB was completed correlating with fecal stasis and by basilar atelectasis. CT abdomen and pelvis with contrast been completed revealing mild abdominal ascites and bilateral lower lobe atelectasis. Ultrasound of gallbladder then completed reporting cholecystectomy, gallbladder absent with common bile duct not seen but no dilation of intrahepatic bile ducts. Patient was admitted under Gen. surgery team and we have been consulted for continued medical management throughout hospitalization. HIDA scan revealing findings consistent with bile leak and Dr. Calle has been notified and to evaluate. Physical examination: Patient seen and fully evaluated at the bedside this morning. He reports persistent abdominal pain/discomfort despite administration of medications. Dr. Gregg has been notified by TERRENCE Retana of HIDA scan results as well as patient's persistent uncontrolled pain and states that she will evaluate at bedside. Morning labs reveal improvement of leukocytosis down to 15.0, thrombocytopenia with platelet count of 137,000, increasing total bili of 4.8 and unconjugated bilirubin of 4.2 as well as elevated ALT of 103. Patient remains NPO and is receiving aggressive fluid hydration along with pain management with Dilaudid, morphine, Toradol, and Ofirmev. He remains on IV antibiotics Zosyn and is receiving scheduled Mylicon 80 mg 4 times daily. General: non toxic, appears mildly distressed secondary to reports of pain, appears at stated age, normal weight Derm: no unusual rashes/lesions no unusual ecchymoses, warm, dry Head: atraumatic, normocephalic, symmetric Eyes: EOMI, no lid lag, anicteric sclera, pupils equal round reactive to light ENT: Nose and ears atraumatic, no thrush, no pharyngeal erythema Neck: No cervical lymphadenopathy, trachea midline, supple, Full range of motion Mouth: no lip lesion, mucus membranes moist Cardiovascular: S1S2 reg, no murmur, positive posterior tibial pulse bilateral, no edema, capillary refill less than 2 seconds Lungs: CTA bilateral, no rhonchi, no rales , no accessory muscle use Abdominal: soft, diffuse tenderness to palpation bilateral upper quadrants, no guarding, no appreciable organomegaly, normal bowel sounds. Postoperative laparoscopic incisions well approximated with no redness, swelling, or drainage present. Ext: no gross muscle atrophy, muscle strength 5 out of 5 in all 4 extremities grossly, no contractures, Neuro: CN II-XI grossly intact, light touch intact all 4 extremities, finger to nose within normal limits, Psych: Alert, oriented, appropriate affect Assessment and plan of care: Persistent Abdominal pain status post recent cholecystectomy on 04/18/21 -Pt reports persistent uncontrolled abdominal pain status post robotic laparoscopic cholecystectomy completed by Dr. Calle on 04/18/21. -KUB was completed correlating with fecal stasis and by basilar atelectasis. -CT abdomen and pelvis with contrast been completed revealing mild abdominal ascites and bilateral lower lobe atelectasis. Ultrasound of gallbladder then completed reporting cholecystectomy, gallbladder absent with common bile duct not seen but no dilation of intrahepatic bile ducts. -HIDA scan revealing findings consistent with bile leak -Symptomatic care and pain management, keep NPO pending further recommendations by general surgery. -Continuation of IV fluids. -Continuation of IV antibiotics Zosyn. -Management per primary admitting general surgery team including pain management and DVT prophylaxis. -DVT prophylaxis currently with SCDs Bibasilar atelectasis -Encourage use of incentive spirometry 10-15 times hourly while awake. Hypertension -Monitor vital signs and Continue with losartan 50 mg (in place of Avapro) Hyperlipidemia -Hold lipitor in setting of deranged LFTs Thank you for allowing us to participate in the care of this pleasant patient. Do not hesitate to contact us with questions. Someone can be reached from the [facility] hospitalist group all hours of the day at [phone] or via perfect serve. Objective - Vital Signs Vital signs: Vital Signs Temp 98.1 F 04/20/21 10:20 Pulse 98 04/20/21 10:20 Resp 20 04/20/21 10:20 BP 171/91 04/20/21 10:20 Pulse Ox 94 L 04/20/21 10:20 Intake & Output 04/19/21 04/20/21 04/20/21 18:59 06:59 18:59 Intake Total 0 Balance 0 Weight 79.379 kg Intake: Oral 0 Other: Voiding Method Toilet # Voids 2 - Labs CBC & Chem 7: 04/20/21 10:00 04/20/21 10:00 Labs: Abnormal Lab Results - Last 24 Hours (Table) 04/19/21 04/19/21 04/20/21 Range/Units 17:13 17:13 10:00 WBC 20.5 H (3.8-10.6) k/uL RBC 6.10 H (4.30-5.90) m/uL Hgb 18.4 H (13.0-17.5) gm/dL Hct 53.9 H (39.0-53.0) % Plt Count 132 L (150-450) k/uL Neutrophils # 17.8 H (1.3-7.7) k/uL Lymphocytes # (1.0-4.8) k/uL Monocytes # 1.4 H (0-1.0) k/uL Sodium 133 L (137-145) mmol/L Carbon Dioxide 19 L (22-30) mmol/L Glucose 153 H 153 H (74-99) mg/dL Total Bilirubin 4.2 H 4.8 H (0.2-1.3) mg/dL Unconjugated Bilirubin 4.2 H (0.0-1.1) mg/dL AST 70 H (17-59) U/L ALT 94 H 103 H (4-49) U/L 04/20/21 Range/Units 10:00 WBC 15.0 H (3.8-10.6) k/uL RBC (4.30-5.90) m/uL Hgb (13.0-17.5) gm/dL Hct (39.0-53.0) % Plt Count 137 L (150-450) k/uL Neutrophils # 12.8 H (1.3-7.7) k/uL Lymphocytes # 0.9 L (1.0-4.8) k/uL Monocytes # (0-1.0) k/uL Sodium (137-145) mmol/L Carbon Dioxide (22-30) mmol/L Glucose (74-99) mg/dL Total Bilirubin (0.2-1.3) mg/dL Unconjugated Bilirubin (0.0-1.1) mg/dL AST (17-59) U/L ALT (4-49) U/L
--- NOTE | 2021-04-20 12:49 | P.PN ---
Subjective Progress Note Date: 04/20/21 CHIEF COMPLAINT: Right upper quadrant abdominal pain HISTORY OF PRESENT ILLNESS: The patient is a 55 year old male status post robotic cholecystectomy last night 04/18/21. He returned to the ER the next morning with new severe right upper quadrant abdominal pain after eating mash potatoes and chicken before he went to bed. Yesterday, multiple studies were performed including US right upper quadrant, CT scan, repeat CMP. Findings show no dilation of the biliary tree. Hgb historically is 16.5 mg/dL but was as high as 18.4 for polycythemia vera. He had his HIDA scan done this morning with bile leak. He was feeling better prior to his HIDA scan but reports recurrent cramping at the right upper quadrant, mild. REVIEW OF ORGAN SYSTEMS: No shortness of breath. No chest pain. No nausea or vomiting. PHYSICAL EXAM: VITALS: Reviewed CONSTITUTIONAL: Well developed and in mild distress. EYES: Conjuctivae with sclera icterus. Extraocular movements grossly intact. HEAD, EARS, NOSE, THROAT: Moist buccal mucosa. Head is atraumatic, normocephalic. Hears conversational speech. No nasal drainage. RESPIRATORY: Non-labored respirations and equal bilateral excursions. No gross wheezes. CARDIOVASCULAR: Regular rate and rhythm. ABDOMEN: Tender right upper quadrant. Incisions intact. MUSCULOSKELETAL: No clubbing cyanosis. SKIN: Warm and well perfused with good skin turgor. NEUROLOGIC: Cranial nerves II through XII grossly intact. No focal or lateralizing signs. PSYCH: Appropriate affect. Alert and oriented to person, place and time. Displays appropriate insight. CLINCAL LABS: Reviewed. WBC 27,000 due to stress response, now 15,000. Total bilirubin elevated from 2.8-3.5, up to 4.8, entirely unconjugated. Hemoglobin elevated at 17. up to 18.4 now 15.4. IMAGING: HIDA scan reviewed with signal at the right inferior lobe of the liver. ASSESSMENT: 1. Acute right upper quadrant abdominal pain status post cholecystectomy 2. Gilbert syndrome with hyperbilirubinemia 3. Leukocytosis due to stress response and dehydration 4. Hypertensive urgency. 5. Polycythema vera 6. Bile leak PLAN: 1. Continue IV antibiotics. 2. Hematology consult for historical polycythema vera evaluation 3. Repeat CMP and CBC 4. GI consultation for ERCP 5. Low fat diet 6. Inpatient hospitalization for 3 to 5 days reviewed. 7. Care plan reviewed with him and all questions were addressed with images of gallbladder anatomy reviewed. Objective - Vital Signs Vital signs: Vital Signs Temp 98.1 F 04/20/21 10:20 Pulse 98 04/20/21 10:20 Resp 20 04/20/21 10:20 BP 171/91 04/20/21 10:20 Pulse Ox 94 L 04/20/21 10:20 Intake & Output 04/19/21 04/20/21 04/20/21 18:59 06:59 18:59 Intake Total 0 Balance 0 Weight 79.379 kg Intake: Oral 0 Other: Voiding Method Toilet # Voids 2 - Labs CBC & Chem 7: 04/20/21 10:00 04/20/21 10:00 Labs: Abnormal Lab Results - Last 24 Hours (Table) 04/19/21 04/19/21 04/20/21 Range/Units 17:13 17:13 10:00 WBC 20.5 H (3.8-10.6) k/uL RBC 6.10 H (4.30-5.90) m/uL Hgb 18.4 H (13.0-17.5) gm/dL Hct 53.9 H (39.0-53.0) % Plt Count 132 L (150-450) k/uL Neutrophils # 17.8 H (1.3-7.7) k/uL Lymphocytes # (1.0-4.8) k/uL Monocytes # 1.4 H (0-1.0) k/uL Sodium 133 L (137-145) mmol/L Carbon Dioxide 19 L (22-30) mmol/L Glucose 153 H 153 H (74-99) mg/dL Total Bilirubin 4.2 H 4.8 H (0.2-1.3) mg/dL Unconjugated Bilirubin 4.2 H (0.0-1.1) mg/dL AST 70 H (17-59) U/L ALT 94 H 103 H (4-49) U/L 04/20/21 Range/Units 10:00 WBC 15.0 H (3.8-10.6) k/uL RBC (4.30-5.90) m/uL Hgb (13.0-17.5) gm/dL Hct (39.0-53.0) % Plt Count 137 L (150-450) k/uL Neutrophils # 12.8 H (1.3-7.7) k/uL Lymphocytes # 0.9 L (1.0-4.8) k/uL Monocytes # (0-1.0) k/uL Sodium (137-145) mmol/L Carbon Dioxide (22-30) mmol/L Glucose (74-99) mg/dL Total Bilirubin (0.2-1.3) mg/dL Unconjugated Bilirubin (0.0-1.1) mg/dL AST (17-59) U/L ALT (4-49) U/L Assessment and Plan (1) Gilbert's disease Current Visit: Yes Status: Acute Code(s): E80.4 - GILBERT SYNDROME SNOMED Code(s): 09934395 (2) Status post cholecystectomy Current Visit: Yes Status: Acute Code(s): Z90.49 - ACQUIRED ABSENCE OF OTHER SPECIFIED PARTS OF DIGESTIVE TRACT SNOMED Code(s): 330909026 (3) Right upper quadrant abdominal pain Current Visit: Yes Status: Acute Code(s): R10.11 - RIGHT UPPER QUADRANT PAIN SNOMED Code(s): 162734144 (4) Hyperbilirubinemia Current Visit: Yes Status: Acute Code(s): E80.6 - OTHER DISORDERS OF BILIRUBIN METABOLISM SNOMED Code(s): 12984475 (5) Leukocytosis Current Visit: Yes Status: Acute Code(s): D72.829 - ELEVATED WHITE BLOOD CELL COUNT, UNSPECIFIED SNOMED Code(s): 754612577
[2021-04-20] MEDS: ACETAMINOPHEN TAB 500 MG TAB PO SCH ×2 (17:04→23:58)
[2021-04-21] MEDS: KETOROLAC 15 MG/ML 1 ML VIAL IVP SCH ×3 (05:42→17:55)
[2021-04-21] MEDS: ACETAMINOPHEN TAB 500 MG TAB PO SCH ×3 (05:45→17:55)
[2021-04-21 06:50] LABS: ALT 76 U/L (4-49); AST 34 U/L (17-59); African American GFR (CKD) >90 (>60 ml/min/1.73 sqM); Albumin 2.8 g/dL (3.5-5.0); Albumin/Globulin Ratio 1.3; Alkaline Phosphatase 53 U/L (38-126); Anion Gap 4 mmol/L; Blood Urea Nitrogen 17 mg/dL (9-20); Calcium 8.5 mg/dL (8.4-10.2); Carbon Dioxide 25 mmol/L (22-30); Chloride 109 mmol/L (98-107); Globulin 2.2 g/dL; Glucose 92 mg/dL (74-99); Non-African American GFR(CKD) >90 (>60 ml/min/1.73 sqM); Potassium 3.8 mmol/L (3.5-5.1); Sodium 138 mmol/L (137-145); Total Bilirubin 2.7 mg/dL (0.2-1.3)
[2021-04-21 06:59] LABS: Basophils % (A) 0 %; Eosinophils # (A) 0.3 k/uL (0-0.7); Eosinophils % (A) 4 %; HCT 37.4 % (39.0-53.0); Lymphocytes # (A) 1.2 k/uL (1.0-4.8); Lymphocytes % (A) 15 %; MCH 29.3 pg (25.0-35.0); MCHC 34.9 g/dL (31.0-37.0); MCV 84.1 fL (80.0-100.0); Mean Platelet Volume 8.5; Monocytes # (A) 0.6 k/uL (0-1.0); Monocytes % (A) 7 %; Neutrophils # (A) 5.5 k/uL (1.3-7.7); Neutrophils % (A) 72 %; Platelet Count 125 k/uL (150-450); RBC 4.44 m/uL (4.30-5.90); RDW 13.8 % (11.5-15.5); WBC 7.7 k/uL (3.8-10.6)
[2021-04-21 09:10] LABS: INR 0.9 (<1.2); Prothrombin Time 10.2 sec (9.0-12.0)
[2021-04-21] MEDS: PIPERACILLIN-TAZOBACTAM 3.375 GM in SODIUM CHLORIDE 0.9% 100 ML IVPB SCH ×2 (09:38→16:33)
[2021-04-21] MEDS: LOSARTAN 50 MG TAB PO SCH (09:39)
[2021-04-21] MEDS: SODIUM CHLORIDE 0.9% 1,000 ML IV SCH ×4 (09:39→19:11)
[2021-04-21 10:32] LABS: Reticulocyte % 1.2 % (0.5-2.0)
[2021-04-21] MEDS ORDERED: INDOMETHACIN 50MG SUPPOSITORY RECTAL ONE (11:00)
[2021-04-21] MEDS: SIMETHICONE 40 MG/0.6 ML DROPS 2,000 MG/30 ML BOTTLE PO SCH ×4 (12:47→21:01)
--- NOTE | 2021-04-21 13:13 | P.CONS ---
History of Present Illness - Reason for Consult Consult date: 04/21/21 bile leak Requesting physician: Lashae Gregg - Chief Complaint Abdominal pain - History of Present Illness This a 55-year-old male who presented to the emergency department day evening with complaints of severe abdominal pain associated with nausea and vomiting. The patient underwent a robotic cholecystectomy on 04/18/[address] Gregg for chronic cholecystitis and was discharged home in the evening. The patient states pain started around 2 AM in his right lower abdomen and radiated up towards his right shoulder. He denied any fevers or chills. On admission he was noted to have a leukocytosis with elevated LFTs. WBC was 20.5 hemoglobin 18 hematocrit 53 platelet count 132,000, total bilirubin of 4.2 AST 70 ALT 94 alk phos 98. He has no prior history of any liver disease, denies any history of alcoholism. He did have a CT of the abdomen and pelvis pulmonary abnormalities appear new compared to old exam. Ascites new compared to old exam appendix not change. Gallbladder ultrasound shows patient status post cholecystectomy. Common bile duct not seen but no dilation of the intrahepatic bile ducts. Yesterday the patient underwent HIDA scan which was positive for bile leak and therefore gastroenterology was consulted for ERCP. Patient states today he has no abdominal pain, denies any nausea or vomiting. Repeat labs today WBC 7.7 he moglobin 13 hematocrit 37 platelet count 125,000, INR 0.9 total bilirubin 2.7 AST 34 ALT 76 alk phos 53. Patient's been afebrile. States he has had a bowel movement. Review of Systems REVIEW OF SYSTEMS: CARDIOPULMONARY: No chest pain or shortness of breath. Gastrointestinal: Right lower quadrant pain radiating to the right upper quadrant and shoulder, now resolved. No nausea or vomiting. No hematemesis, coffee-ground emesis. No rectal bleeding, or melena. GENITOURINARY: No dysuria or hematuria. MUSCULOSKELETAL: Reports normal range of motion., Joint pain. SKIN: No rashes. No jaundice. ENDOCRINE: No chills, fevers. No excessive weight gain or loss. No polydipsia or polyuria. PSYCHIATRIC: Unremarkable. NEUROLOGY: No change in mental status. Denies dizziness, headache. ENT: Vision unremarkable. CONSTITUTIONAL: No recent weight loss. No fever, chills, night sweats. Past Medical History Past Medical History: Hyperlipidemia, Hypertension Additional Past Medical History / Comment(s): hx kidney stones, arrythmia History of Any Multi-Drug Resistant Organisms: None Reported Past Surgical History: Adenoidectomy, Cholecystectomy, Hernia Repair, Tonsillectomy Additional Past Surgical History / Comment(s): polyps removed from sinus, lithotripsy,. umbilical hernia and lonny inguinal hernia surgery Past Anesthesia/Blood Transfusion Reactions: No Reported Reaction Past Psychological History: No Psychological Hx Reported Smoking Status: Never smoker Past Alcohol Use History: None Reported Past Drug Use History: None Reported - Past Family History Mother Family Medical History: No Reported History Medications and Allergies Home Medications Medication Instructions Recorded Confirmed Type Atorvastatin [Lipitor] 20 mg PO HS 12/13/18 04/19/21 History Irbesartan [Avapro] 150 mg PO DAILY 03/11/21 04/19/21 History Acetaminophen Tab [Tylenol Tab] 1,000 mg PO Q6HR PRN #30 tablet 04/18/21 04/19/21 Rx Ibuprofen [Motrin] 600 mg PO Q8HR PRN #30 tab 04/18/21 04/19/21 Rx Simethicone [Gas-X] 125 mg PO AC-TID PRN #20 capsule 04/18/21 04/19/21 Rx Allergies Allergy/AdvReac Type Severity Reaction Status Date / Time No Known Allergies Allergy Verified 04/19/21 14:07 Physical Exam Vitals: Vital Signs Temp Pulse Resp BP Pulse Ox 04/21/21 08:00 98.3 F 73 15 117/66 96 04/21/21 00:54 99.1 F 82 14 117/69 95 04/20/21 20:00 18 04/20/21 14:00 97.8 F 95 18 126/89 93 L 04/20/21 10:20 98.1 F 98 20 171/91 94 L Intake and Output 04/20/21 04/21/21 04/21/21 22:59 06:59 14:59 Intake Total 2000 Output Total 700 Balance 1300 Intake: Intake, IV Titration 1500 Amount Sodium Chloride 0.9% 1, 1500 000 ml @ 130 mls/hr IV . Q7H42M [facility] Rx#:[id number] Oral 500 Output: Urine 700 Other: Voiding Method Toilet # Voids 3 3 General appearance: The patient is alert, oriented, appears in no acute distress. HET: Head is normocephalic and atraumatic. Conjunctiva pink. Sclera anicteric. Neck: Supple without lymphadenopathy. Trachea midline. Heart: S1 S2. Regular rate and rhythm. Lungs: Clear to auscultation. Abdomen: Soft, nontender, nondistended with bowel sounds. No guarding or rigidity. Skin: No rashes. No jaundice. Extremities: Normal skin color and turgor. No pedal edema. Neurological: No focal deficits. Alert and oriented x3. Results CBC & Chem 7: 04/21/21 05:58 04/21/21 05:58 Labs: Abnormal Lab Results - Last 24 Hours (Table) 04/20/21 04/20/21 04/21/21 Range/Units 10:00 10:00 05:58 WBC 15.0 H (3.8-10.6) k/uL Hct 37.4 L (39.0-53.0) % Plt Count 137 L 125 L (150-450) k/uL Neutrophils # 12.8 H (1.3-7.7) k/uL Lymphocytes # 0.9 L (1.0-4.8) k/uL Chloride (98-107) mmol/L Glucose 153 H (74-99) mg/dL Total Bilirubin 4.8 H (0.2-1.3) mg/dL Unconjugated Bilirubin 4.2 H (0.0-1.1) mg/dL ALT 103 H (4-49) U/L Total Protein (6.3-8.2) g/dL Albumin (3.5-5.0) g/dL 04/21/21 Range/Units 05:58 WBC (3.8-10.6) k/uL Hct (39.0-53.0) % Plt Count (150-450) k/uL Neutrophils # (1.3-7.7) k/uL Lymphocytes # (1.0-4.8) k/uL Chloride 109 H (98-107) mmol/L Glucose (74-99) mg/dL Total Bilirubin 2.7 H (0.2-1.3) mg/dL Unconjugated Bilirubin (0.0-1.1) mg/dL ALT 76 H (4-49) U/L Total Protein 5.0 L (6.3-8.2) g/dL Albumin 2.8 L (3.5-5.0) g/dL Comments: CT abdomen and pelvis shows mild abdominal ascites fluid. Cause for fluid neck clearly seen. Appendix does not show sign of significant thickening to suggest appendicitis. Appendix is borderline thickened. Bilateral lower lobe mild pulm onary infiltrate and atelectasis. Pulmonary abnormalities new compared to old exam. Ascites fluid is new compared to old exam. Appendix is not change. Gallbladder ultrasound shows a cholecystectomy. Gallbladder absent. Common bile duct is seen but no dilation of intrahepatic bile ducts. HIDA scan positive for bile leak Assessment and Plan (1) Postoperative bile leak Narrative/Plan: [id number] male who presented to the emergency department Wednesday evening with complaints of severe right upper quadrant abdominal pain. He was status post cholecystectomy for chronic cholecystitis on 04/18/[address] Luo and later discharged that evening. Patient states he started at approximately 2 AM with severe abdominal pain that started lower in the right quadrant and radiated to the right upper quadrant and into the shoulder with some nausea and vomiting. He presented to the emergency department Wednesday evening and was noted to have leukocytosis as well as elevated LFTs. His initial WBC was 20.5 today repeat 7.7. Total bilirubin on admission was 4.2 AST 70 ALT 94 alk phos 98. Repeat bilirubin today 2.7 AST 34 ALT 76 alk phos 53. HIDA scan showing positive bile leak. Today patient states abdominal pain is almost gone. He denies any nausea or vomiting. Plan is to proceed with ERCP tomorrow. Nothing by mouth after midnight. Repeat labs in the morning. Current Visit: Yes Status: Acute Code(s): K91.89 - OTH POSTPROCEDURAL COMPLICATIONS AND DISORDERS OF DGSTV SYS; K83.8 - OTHER SPECIFIED DISEASES OF BILIARY TRACT SNOMED Code(s): 172803883 (2) Hyperbilirubinemia Current Visit: Yes Status: Acute Code(s): E80.6 - OTHER DISORDERS OF BILIRUBIN METABOLISM SNOMED Code(s): 47373978 (3) Right upper quadrant abdominal pain Current Visit: Yes Status: Acute Code(s): R10.11 - RIGHT UPPER QUADRANT PAIN SNOMED Code(s): 319971885 (4) Status post cholecystectomy Current Visit: Yes Status: Acute Code(s): Z90.49 - ACQUIRED ABSENCE OF OTHER SPECIFIED PARTS OF DIGESTIVE TRACT SNOMED Code(s): 763165880 Plan: 1. Low-fat diet, nothing by mouth after midnight 2. PT/INR 3. Repeat labs in the morning CBC, CMP 4. Indomethacin 100 mg 1 hour prior to ERCP 5. We'll plan on ERCP tomorrow, procedure discussed with patient in detail including risks and benefits. Patient is willing to proceed. Thank you for this consultation, we will continue to follow. Dr. Maya Hallman I agree with the dictator's note, documented as a scribe by Susana Thomas.
--- NOTE | 2021-04-21 13:54 | P.PN ---
Subjective Progress Note Date: 04/21/21 Principal diagnosis: Bile leak Hospital course: The patient is a very pleasant 55-year-old male with a past medical history of hypertension, hyperlipidemia, and Gilbert's syndrome. He presented to the emergency department on 04/19/21 with a chief complaint of uncontrolled abdominal pain status post robotic laparoscopic cholecystectomy completed by Dr. Calle on 04/18/21. In the emergency department KUB was completed correlating with fecal stasis and by basilar atelectasis. CT abdomen and pelvis with contrast been completed revealing mild abdominal ascites and bilateral lower lobe atelectasis. Ultrasound of gallbladder then completed reporting cholecystectomy, gallbladder absent with common bile duct not seen but no dilation of intrahepatic bile ducts. Patient was admitted under Gen. surgery team and we have been consulted for continued medical management throughout hospitalization. HIDA scan revealing findings consistent with bile leak and Dr. Calle has been notified and to evaluate. 04/21/21: Doing well. No complaints no pain, n/v. No fevers. He is NPO. Objective - Vital Signs Vital signs: Vital Signs Temp 98.3 F 04/21/21 08:00 Pulse 73 04/21/21 08:00 Resp 15 04/21/21 08:00 BP 117/66 04/21/21 08:00 Pulse Ox 96 04/21/21 08:00 Intake & Output 04/20/21 04/21/21 04/21/21 18:59 06:59 18:59 Intake Total 2000 Output Total 700 Balance 1300 Intake: Intake, IV Titration 1500 Amount Sodium Chloride 0.9% 1, 1500 000 ml @ 130 mls/hr IV . Q7H42M [facility] Rx#:[id number] Oral 500 Output: Urine 700 Other: Voiding Method Toilet # Voids 3 3 - Exam Constitutional: No acute distress, conversant, pleasant Eyes:Anicteric sclerae, moist conjunctiva, no lid-lag, PERRLA, ENMT: Oropharynx clear, no erythema, exudates Neck: Supple, FROM, no masses, or JVD, No carotid bruits, No thyromegaly Lungs: Clear to auscultation, Clear to percussion, Normal respiratory effort, no accessory muscle use Cardiovascular: Heart regular in rate and rhythm, No murmurs, gallops, or rubs, No peripheral edema Abdominal: Soft, Nontender, no guarding, rebound or rigidity, Normoactive bowel sounds, No hepatomegaly, No splenomegaly, No palpable mass Skin: Normal temperature, tone, texture, turgor, no induration, No subcutaneous nodules, No rash, lesions, No ulcers Extremities: No digital cyanosis, No clubbing, Pedal pulses intact and symmetrical, Radial pulses intact and symmetrical, No calf tenderness Psychiatric: Alert and oriented to person, place and time, appropriate affect, intact judgement Neuro: Muscles Strength 5/5 in all 4 extremities, Sensation to light touch grossly present throughout, Cranial nerves II-XII grossly intact, no focal sensory deficits - Labs CBC & Chem 7: 04/21/21 05:58 04/21/21 05:58 Labs: Abnormal Lab Results - Last 24 Hours (Table) 04/21/21 04/21/21 Range/Units 05:58 05:58 Hct 37.4 L (39.0-53.0) % Plt Count 125 L (150-450) k/uL Chloride 109 H (98-107) mmol/L Total Bilirubin 2.7 H (0.2-1.3) mg/dL ALT 76 H (4-49) U/L Total Protein 5.0 L (6.3-8.2) g/dL Albumin 2.8 L (3.5-5.0) g/dL Assessment and Plan Plan: Persistent Abdominal pain status post recent cholecystectomy on 04/18/21 -Pt reports persistent uncontrolled abdominal pain status post robotic laparoscopic cholecystectomy completed by Dr. Calle on 04/18/21. -KUB was completed correlating with fecal stasis and by basilar atelectasis. -CT abdomen and pelvis with contrast been completed revealing mild abdominal ascites and bilateral lower lobe atelectasis. Ultrasound of gallbladder then completed reporting cholecystectomy, gallbladder absent with common bile duct not seen but no dilation of intrahepatic bile ducts. -HIDA scan revealing findings consistent with bile leak---GI consulted on 04/21, will go for ERCP. -Continuation of IV fluids. -Continuation of IV antibiotics Zosyn. -Management per primary admitting general surgery team including pain management and DVT prophylaxis. -DVT prophylaxis currently with SCDs Bibasilar atelectasis -Encourage use of incentive spirometry 10-15 times hourly while awake. Hypertension -Monitor vital signs and Continue with losartan 50 mg (in place of Avapro) Hyperlipidemia -Hold lipitor in setting of deranged LFTs
--- NOTE | 2021-04-21 14:18 | P.PN ---
Subjective Progress Note Date: 04/21/21 CHIEF COMPLAINT: Right upper quadrant abdominal pain HISTORY OF PRESENT ILLNESS: The patient is a 55 year old male status post robotic cholecystectomy last night 04/18/21. He returned to the ER the next m orning with new severe right upper quadrant abdominal pain after eating mash potatoes and chicken before he went to bed. Yesterday, multiple studies were performed including US right upper quadrant, CT scan, repeat CMP. Findings show no dilation of the biliary tree. Hgb historically is 16.5 mg/dL but was as high as 18.4 for polycythemia vera. He had his HIDA scan done with evidence of bile leak. Afebrile. WBC normalized at 7.7 hemoglobin 13.0 platelets 125 INR 0.9 total bili trending down to 2.7 AST normalized at 34 ALT trending down to 76 patient reporting improvement in his abdominal pain. Denies any nausea or vomiting. PHYSICAL EXAM: VITAL SIGNS: Reviewed GENERAL: Well-developed in no acute distress. HEENT: No sclera icterus. Extraocular movements grossly intact. Moist buccal mucosa. Head is atraumatic, normocephalic. Hears conversational speech. No nasal drainage. NECK: Supple without lymphadenopathy. CHEST: Non-labored respirations and equal bilateral excursions. CARDIOVASCULAR: Palpable 2+ radial pulses. ABDOMEN: Soft. Nondistended. minimal tenderness right side of abdomen MUSCULOSKELETAL: No clubbing or cyanosis. NEUROLOGIC: No focal or lateralizing signs. Cranial nerves II through XII grossly intact. PSYCH: Appropriate affect. Alert and oriented to person, place and time. SKIN: Well perfused. Good skin turgor. ASSESSMENT: 1. Acute right upper quadrant abdominal pain status post cholecystectomy 2. Gilbert syndrome with hyperbilirubinemia 3. Leukocytosis due to stress response and dehydration 4. Hypertensive urgency. 5. Polycythema vera 6. Bile leak PLAN: -patient seen by GI service scheduled for ERCP tomorrow, 04/22/2021 -Continue antibiotics -Hematology on consult for polycythemia vera -Continue low-fat diet -Follow up CBC and CMP in a.m. Physician Tax Agent note has been reviewed by physician. Signing provider agrees with the documented findings, assessment, and plan of care. Objective - Vital Signs Vital signs: Vital Signs Temp 98.3 F 04/21/21 08:00 Pulse 73 04/21/21 08:00 Resp 15 04/21/21 08:00 BP 117/66 04/21/21 08:00 Pulse Ox 96 04/21/21 08:00 Intake & Output 04/20/21 04/21/21 04/21/21 18:59 06:59 18:59 Intake Total 2000 Output Total 700 Balance 1300 Intake: Intake, IV Titration 1500 Amount Sodium Chloride 0.9% 1, 1500 000 ml @ 130 mls/hr IV . Q7H42M [facility] Rx#:[id number] Oral 500 Output: Urine 700 Other: Voiding Method Toilet # Voids 3 3 - Labs CBC & Chem 7: 04/21/21 05:58 04/21/21 05:58 Labs: Abnormal Lab Results - Last 24 Hours (Table) 04/21/21 04/21/21 Range/Units 05:58 05:58 Hct 37.4 L (39.0-53.0) % Plt Count 125 L (150-450) k/uL Chloride 109 H (98-107) mmol/L Total Bilirubin 2.7 H (0.2-1.3) mg/dL ALT 76 H (4-49) U/L Total Protein 5.0 L (6.3-8.2) g/dL Albumin 2.8 L (3.5-5.0) g/dL
[2021-04-21 16:15] LABS: % Iron Saturation 15.91 (15.00-50.00); Folate, Serum 5.2 ng/mL (4.40-31.00)
[2021-04-21] MEDS ORDERED: LACTATED RINGERS 1,000 ML IV SCH (16:30)
--- NOTE | 2021-04-21 19:12 | P.CONS ---
History of Present Illness - Reason for Consult Consult date: 04/21/21 POlycythemia Requesting physician: Lashae Gregg - Chief Complaint Nausea and Vomiting sp haley - History of Present Illness Richard is a 55 year old male who we have been asked to further evaluate for a primary polycythemia. On admission he presented with leukocytosis, elevated hemoglobin and hematocrit. This was following recent surgical intervention (Cholecystectomy) and admits to Nausea and vomiting prior to admission, improving. Recommendations: Since admission his CBC WBC, Hgb, and HEmatocrit has recovered. I feel this is likely a reactive result from recent surgery and dehydration. Do not feel further work-up is required at this time regarding a primary PV, however further monitoring of CBC after recovery of acute inflammatory process is recommended and if concern represents we are happy to re-evaluate. Review of Systems All systems: negative Constitutional: Reports as per HPI Past Medical History Past Medical History: Hyperlipidemia, Hypertension Additional Past Medical History / Comment(s): hx kidney stones, arrythmia History of Any Multi-Drug Resistant Organisms: None Reported Past Surgical History: Adenoidectomy, Cholecystectomy, Hernia Repair, Tonsillect michelle Additional Past Surgical History / Comment(s): polyps removed from sinus, lithotripsy,. umbilical hernia and lonny inguinal hernia surgery Past Anesthesia/Blood Transfusion Reactions: No Reported Reaction Past Psychological History: No Psychological Hx Reported Smoking Status: Never smoker Past Alcohol Use History: None Reported Past Drug Use History: None Reported - Past Family History Mother Family Medical History: No Reported History Medications and Allergies Home Medications Medication Instructions Recorded Confirmed Type Atorvastatin [Lipitor] 20 mg PO HS 12/13/18 04/19/21 History Irbesartan [Avapro] 150 mg PO DAILY 03/11/21 04/19/21 History Acetaminophen Tab [Tylenol Tab] 1,000 mg PO Q6HR PRN #30 tablet 04/18/21 04/19/21 Rx Ibuprofen [Motrin] 600 mg PO Q8HR PRN #30 tab 04/18/21 04/19/21 Rx Simethicone [Gas-X] 125 mg PO AC-TID PRN #20 capsule 04/18/21 04/19/21 Rx Allergies Allergy/AdvReac Type Severity Reaction Status Date / Time No Known Allergies Allergy Verified 04/19/21 14:07 Physical Exam Vitals: Vital Signs Temp Pulse Resp BP Pulse Ox 04/21/21 08:00 98.3 F 73 15 117/66 96 04/21/21 00:54 99.1 F 82 14 117/69 95 04/20/21 20:00 18 04/20/21 14:00 97.8 F 95 18 126/89 93 L 04/20/21 10:20 98.1 F 98 20 171/91 94 L Intake and Output 04/20/21 04/21/21 04/21/21 22:59 06:59 14:59 Intake Total 2000 Output Total 700 Balance 1300 Intake: Intake, IV Titration 1500 Amount Sodium Chloride 0.9% 1, 1500 000 ml @ 130 mls/hr IV . Q7H42M [facility] Rx#:[id number] Oral 500 Output: Urine 700 Other: Voiding Method Toilet # Voids 3 3 - Constitutional General appearance: cooperative, no acute distress - EENT Eyes: EOMI ENT: NA/AT - Neck Neck: normal ROM - Respiratory Respiratory: bilateral: diminished (bibasiliar) - Gastrointestinal General gastrointestinal: normal bowel sounds, soft - Integumentary Integumentary: pale - Neurologic Neurologic: CNII-XII intact - Musculoskeletal Musculoskeletal: generalized weakness, strength equal bilaterally - Psychiatric Psychiatric: A&O x's 3, appropriate affect, intact judgment & insight Results CBC & Chem 7: 04/21/21 05:58 04/21/21 05:58 Labs: Abnormal Lab Results - Last 24 Hours (Table) 04/20/21 04/20/21 04/21/21 Range/Units 10:00 10:00 05:58 WBC 15.0 H (3.8-10.6) k/uL Hct 37.4 L (39.0-53.0) % Plt Count 137 L 125 L (150-450) k/uL Neutrophils # 12.8 H (1.3-7.7) k/uL Lymphocytes # 0.9 L (1.0-4.8) k/uL Chloride (98-107) mmol/L Glucose 153 H (74-99) mg/dL Total Bilirubin 4.8 H (0.2-1.3) mg/dL Unconjugated Bilirubin 4.2 H (0.0-1.1) mg/dL ALT 103 H (4-49) U/L Total Protein (6.3-8.2) g/dL Albumin (3.5-5.0) g/dL 04/21/21 Range/Units 05:58 WBC (3.8-10.6) k/uL Hct (39.0-53.0) % Plt Count (150-450) k/uL Neutrophils # (1.3-7.7) k/uL Lymphocytes # (1.0-4.8) k/uL Chloride 109 H (98-107) mmol/L Glucose (74-99) mg/dL Total Bilirubin 2.7 H (0.2-1.3) mg/dL Unconjugated Bilirubin (0.0-1.1) mg/dL ALT 76 H (4-49) U/L Total Protein 5.0 L (6.3-8.2) g/dL Albumin 2.8 L (3.5-5.0) g/dL CT scan - abdomen: report reviewed CT scan - pelvis: report reviewed Assessment and Plan (1) Elevated hemoglobin Current Visit: Yes Status: Acute Code(s): D58.2 - OTHER HEMOGLOBINOPATHIES SNOMED Code(s): 064376883 (2) Leukocytosis Current Visit: Yes Status: Acute Code(s): D72.829 - ELEVATED WHITE BLOOD CELL COUNT, UNSPECIFIED SNOMED Code(s): 163410724 Plan: Increased WBC and H/H likely reactive. and secondary to acute dehydration post operative and vomiting. Hemoglobin has decreased alone to 13, will check Iron studies because of the drastic drop, however likely dilutional from IV Hydration for severe dehydration on admission. He denies tobacco use (lifelong non-smoker), no history of liver disease, and no history of bone marrow or primary blood disorder. Will follow along.
[2021-04-22] MEDS: ACETAMINOPHEN TAB 500 MG TAB PO SCH ×3 (00:19→12:08)
[2021-04-22] MEDS: KETOROLAC 15 MG/ML 1 ML VIAL IVP SCH ×3 (00:19→15:51)
[2021-04-22] MEDS: PIPERACILLIN-TAZOBACTAM 3.375 GM in SODIUM CHLORIDE 0.9% 100 ML IVPB SCH ×3 (00:20→16:22)
[2021-04-22] MEDS: SODIUM CHLORIDE 0.9% 1,000 ML IV SCH (01:39)
[2021-04-22 07:03] LABS: HCT 41.6 % (39.0-53.0); HGB 14.3 gm/dL (13.0-17.5); MCH 29.5 pg (25.0-35.0); MCHC 34.4 g/dL (31.0-37.0); Mean Platelet Volume 8.6; Platelet Count 131 k/uL (150-450); RBC 4.84 m/uL (4.30-5.90); RDW 13.8 % (11.5-15.5); WBC 6.1 k/uL (3.8-10.6)
[2021-04-22 07:30] LABS: ALT 63 U/L (4-49); AST 26 U/L (17-59); African American GFR (CKD) >90 (>60 ml/min/1.73 sqM); Albumin 3.3 g/dL (3.5-5.0); Albumin/Globulin Ratio 1.3; Alkaline Phosphatase 61 U/L (38-126); Anion Gap 7 mmol/L; Blood Urea Nitrogen 15 mg/dL (9-20); Calcium 8.9 mg/dL (8.4-10.2); Carbon Dioxide 24 mmol/L (22-30); Chloride 111 mmol/L (98-107); Globulin 2.5 g/dL; Glucose 94 mg/dL (74-99); Magnesium 2.1 mg/dL (1.6-2.3); Non-African American GFR(CKD) >90 (>60 ml/min/1.73 sqM); Phosphorus 2.8 mg/dL (2.5-4.5); Sodium 142 mmol/L (137-145); Total Bilirubin 1.6 mg/dL (0.2-1.3); Total Protein 5.8 g/dL (6.3-8.2)
[2021-04-22] MEDS: LOSARTAN 50 MG TAB PO SCH (09:13)
[2021-04-22] MEDS: SIMETHICONE 40 MG/0.6 ML DROPS 2,000 MG/30 ML BOTTLE PO SCH ×2 (09:33→15:52)
[2021-04-22] MEDS ORDERED: INDOMETHACIN 50MG SUPPOSITORY RECTAL ONE (11:30)
[2021-04-22] MEDS ORDERED: SUCCINYLCHOLINE CHLORIDE 100 MG/5 ML SYR IV ONE (13:22)
[2021-04-22] MEDS ORDERED: fentaNYL (PF) 50 MCG/ML 2 ML AMP ONE (13:22)
[2021-04-22] MEDS ORDERED: PROPOFOL 10 MG/ML 20 ML VIAL IV ONE (13:22)
[2021-04-22] MEDS ORDERED: MIDAZOLAM 2 MG/2 ML VIAL ONE (13:22)
[2021-04-22] MEDS ORDERED: LIDOCAINE 1% INJ 10MG/ML (20 ML MDV) ONE (13:22)
[2021-04-22] MEDS ORDERED: IV FLUID CONTINUATION 1,000 ML IV ONE (13:25)
[2021-04-22] MEDS ORDERED: IOPAMIDOL-300 100ML BTL INJ ONE (13:40)
--- NOTE | 2021-04-22 13:45 | P.PCN ---
Date of Procedure: 04/22/21 Procedure(s) Performed: Brief history: Patient is a 55 year-old pleasant white male scheduled for an ERCP as part of evaluation of postoperative bile leak, abdominal pain and elevated serum transaminases for the last 2 days' duration. Abdomen Is A cholecystectomy 3 days ago for chronic cholecystitis and postoperatively developed severe right upper quadrant abdominal pain and was hospitalized. CT of abdomen showed small and the fluid in the right upper quadrant area. HIDA scan subsequently revealed bile leak. Procedure performed: ERCP Preoperative diagnoses: Post lap cholecystectomy bile leak IV sedation per anesthesia: Procedure: After informed consent was obtained from the patient and after the risks benefits and complications including bleeding perforation and pancreatitis explained in detail the patient was brought into the endoscopy unit. The patient was placed in prone position and IV conscious sedation was administered by anesthesia under continuous monitoring. The Olympus side-viewing duodenoscope was then inserted into the mouth and esophagus intubated without any difficulty. The scope was gradually advanced into the stomach and duodenum. The major papilla was identified without any difficulty. Initial cannulation resulted with into the common bile duct that appeared normal with no filling defects. I did not see any significant bile leak. But because of the lateral evidence of bile leak at proceeded with a 7-Estonian 5 cm Mccurtain stent placement over the guidewire into the proximal CBD and the patient tolerated the procedure well. The pancreatic duct was intentionally not cannulated during the entire procedure. Impression: Normal-appearing common bile duct with no significant bile leak seen. Status post 7-Estonian, 5 cm Mccurtain stent placement Pancreatic duct intentionally not cannulated Recommendations: The findings of this examination were discussed with the patient. He will be observed for 2 hours and if he remains febrile millimeters sessile today and he will be scheduled for repeat ERCP with CBD stent removal in 6 weeks
--- NOTE | 2021-04-22 14:03 | FL ---
Fluoroscopy HISTORY: Pain 71 seconds fluoroscopy time supplied to the referring clinician. intraoperative C-arm images document the procedure. See dictated report from gastroenterology.
--- NOTE | 2021-04-22 14:46 | P.DS ---
<Evelina Wang - Last Filed: 04/22/21 14:40> Providers Expected date of discharge: 04/22/21 Hospital Course: Discharge diagnosis 1. Acute right upper quadrant abdominal pain status post cholecystectomy 2. Gilbert syndrome with hyperbilirubinemia 3. Leukocytosis due to stress response and dehydration. Seen and evaluated by hematology 4. Hypertensive urgency. 5. Polycythema vera 6. Possible Bile leak Hospital course The patient is a 55 year old male status post robotic cholecystectomy on 04/18/21. He returned to the ER the next morning with new severe right upper quadrant abdominal pain after eating mash potatoes and chicken before he went to bed. Multiple studies were performed including US right upper quadrant, CT scan, repeat CMP. Findings show no dilation of the biliary tree. Hgb historically is 16.5 mg/dL but was as high as 18.4 for polycythemia vera. He had his HIDA scan done with evidence of bile leak. Patient seen evaluated by GI service. He underwent an ERCP that showed a normal-appearing common bile duct with no significant bile leaks seen. He did have a stent placed. GI service has cleared him for discharge with outpatient follow-up. Patient is tolerating diet. He denies any pain. He is having bowel movements. He has been up and ambulating. He is afebrile. He is stable for discharge. Physician College Administrator note has been reviewed by physician. Signing provider agrees with the documented findings, assessment, and plan of care. Patient Condition at Discharge: Stable Plan - Discharge Summary Discharge Rx Participant: No New Discharge Prescriptions: Continue Atorvastatin [Lipitor] 20 mg PO HS Irbesartan [Avapro] 150 mg PO DAILY Simethicone [Gas-X] 125 mg PO AC-TID PRN #20 capsule PRN Reason: Pain Ibuprofen [Motrin] 600 mg PO Q8HR PRN #30 tab PRN Reason: Pain Acetaminophen Tab [Tylenol] 1,000 mg PO Q6HR PRN #30 tablet PRN Reason: Pain Discharge Medication List Atorvastatin [Lipitor] 20 mg PO HS 12/13/18 [History] Irbesartan [Avapro] 150 mg PO DAILY 03/11/21 [History] Acetaminophen Tab [Tylenol] 1,000 mg PO Q6HR PRN #30 tablet 04/18/21 [Rx] Ibuprofen [Motrin] 600 mg PO Q8HR PRN #30 tab 04/18/21 [Rx] Simethicone [Gas-X] 125 mg PO AC-TID PRN #20 capsule 04/18/21 [Rx] Follow up Appointment(s)/Referral(s): Santiago Jean Baptiste MD [Primary Care Provider] - 1-2 days Lashae Gregg MD [STAFF PHYSICIAN] - 04/29/21 2:00 pm Maryan Hallman MD [STAFF PHYSICIAN] - 05/30/21 (This appointment is for outpatient EGD with stent removal at [facility]. Left message with office to schedule appointment ) Patient Instructions/Handouts: Endoscopic Biliary Stent Placement (DC), ERCP (Endoscopic Retrograde Cholangiopancreatography) (DC) Activity/Diet/Wound Care/Special Instructions: Patient to continue to hold his Lipitor until seen by his PCP due to elevated LFTs Discharge Disposition: HOME SELF-CARE <Lashae Gregg - Last Filed: 04/23/21 11:44> Providers Date of admission: 04/19/21 12:48 Attending physician: Lashae Gregg Consults: 04/19/21 17:15 Consult Physician Stat Consulting Provider: Ruperto Briseno Consult Reason/Comments: hypertensive urgency Do you want consulting provider notified?: Yes 04/19/21 19:51 Consult Physician Urgent Consulting Provider: Mike Hoff Consult Reason/Comments: Polycythemia vera acute Do you want consulting provider notified?: Yes 04/20/21 11:51 Consult Physician Routine Consulting Provider: Maryan Hallman Consult Reason/Comments: ERCP bile leak, s/p cholecystectomy Do you want consulting provider notified?: Yes, Notify in am Primary care physician: Harjeet Jean Baptiste - Discharge Diagnosis(es) (1) Gilbert's disease Status: Acute (2) Status post cholecystectomy Status: Acute (3) Right upper quadrant abdominal pain Status: Acute (4) Hyperbilirubinemia Status: Acute (5) Leukocytosis Status: Acute (6) Hypertensive urgency Status: Acute (7) Polycythemia Status: Acute Hospital Course: As above. Patient is a 55-year-old gentleman with baseline history of Gilbert syndrome who presented with elevated hyperbilirubinemia including increased right upper quadrant abdominal pain following robotic cholecystectomy. Multiple diagnostic studies were performed. HIDA scan demonstrated a possible bile leak. The patient was taken for ERCP without findings of significant bile leak. Clinically, patient's symptoms had improved with IV fluid hydration and IV antibiotics. Prior to discharge, patient was stable. Discharge instructions were reviewed. Additional consultants including hospitalist for hypertension and hematology was obtained for possible polycythemia vera and personal history of elevated hemoglobin.
[2021-04-22 14:57] VITALS: PULSE 79; RESP 18; TEMP 97.7
--- NOTE | 2021-04-22 15:23 | P.PN ---
Subjective Progress Note Date: 04/22/21 Hospital course: The patient is a very pleasant 55-year-old male with a past medical history of hypertension, hyperlipidemia, and Gilbert's syndrome. He presented to the emergency department on 04/19/21 with a chief complaint of uncontrolled abdominal pain status post robotic laparoscopic cholecystectomy completed by Dr. Calle on 04/18/21. In the emergency department KUB was completed correlating with fecal stasis and by basilar atelectasis. CT abdomen and pelvis with contrast been completed revealing mild abdominal ascites and bilateral lower lobe atelectasis. Ultrasound of gallbladder then completed reporting cholecystectomy, gallbladder absent with common bile duct not seen but no dilation of intrahepatic bile ducts. Patient was admitted under Gen. surgery team and we have been consulted for continued medical management throughout hospitalization. HIDA scan revealing findings consistent with bile leak and Dr. Calle has been notified and to evaluate. Physical examination: Patient seen and fully evaluated at the bedside this morning. He reports persistent abdominal pain/discomfort has improved. He is currently NPO with plan for ERCP later today. Mild thrombocytopenia stable with platelet count of 131,000 and total bili improving to 1.6. Patient denies having any other complaints or concerns at this time including headache, lightheadedness, dizziness, chest pain, palpitations, or shortness of breath. General: non toxic, appears mildly distressed secondary to reports of pain, appears at stated age, normal weight Derm: no unusual rashes/lesions no unusual ecchymoses, warm, dry Head: atraumatic, normocephalic, symmetric Eyes: EOMI, no lid lag, anicteric sclera, pupils equal round reactive to light ENT: Nose and ears atraumatic, no thrush, no pharyngeal erythema Neck: No cervical lymphadenopathy, trachea midline, supple, Full range of motion Mouth: no lip lesion, mucus membranes moist Cardiovascular: S1S2 reg, no murmur, positive posterior tibial pulse bilateral, no edema, capillary refill less than 2 seconds Lungs: CTA bilateral, no rhonchi, no rales , no accessory muscle use Abdominal: soft, diffuse tenderness to palpation bilateral upper quadrants, no guarding, no appreciable organomegaly, normal bowel sounds. Postoperative laparoscopic incisions well approximated with no redness, swelling, or drainage present. Ext: no gross muscle atrophy, muscle strength 5 out of 5 in all 4 extremities grossly, no contractures, Neuro: CN II-XI grossly intact, light touch intact all 4 extremities, finger to nose within normal limits, Psych: Alert, oriented, appropriate affect Assessment and plan of care: Persistent Abdominal pain status post recent cholecystectomy on 04/18/21 -Pt reports persistent uncontrolled abdominal pain status post robotic laparoscopic cholecystectomy completed by Dr. Calle on 04/18/21. -KUB was completed correlating with fecal stasis and by basilar atelectasis. -CT abdomen and pelvis with contrast been completed revealing mild abdominal ascites and bilateral lower lobe atelectasis. Ultrasound of gallbladder then completed reporting cholecystectomy, gallbladder absent with common bile duct not seen but no dilation of intrahepatic bile ducts. -HIDA scan revealing findings consistent with bile leak, general surgery plans to perform ERCP later today. -Symptomatic care and pain management, keep NPO. -Continuation of IV fluids. -Continuation of IV antibiotics Zosyn. -Management per primary admitting general surgery team including pain management and DVT prophylaxis. -DVT prophylaxis currently with SCDs Bibasilar atelectasis -Encourage use of incentive spirometry 10-15 times hourly while awake. Hypertension -Monitor vital signs and Continue with losartan 50 mg (in place of Avapro) Hyperlipidemia -Hold lipitor in setting of deranged LFTs Thank you for allowing us to participate in the care of this pleasant patient. Do not hesitate to contact us with questions. Someone can be reached from the [facility] [place] hospitalist group all hours of the day at [phone] or via Posterous serve. Objective - Vital Signs Vital signs: Vital Signs Temp 97.8 F 04/22/21 07:40 Pulse 73 04/22/21 07:40 Resp 16 04/22/21 07:40 BP 150/89 04/22/21 07:40 Pulse Ox 96 04/22/21 07:40 Intake & Output 04/21/21 04/22/21 04/22/21 18:59 06:59 18:59 Intake Total 160 Balance 160 Intake: Oral 160 Other: Voiding Method Toilet # Voids 3 2 - Labs CBC & Chem 7: 04/22/21 06:09 04/22/21 06:09 Labs: Abnormal Lab Results - Last 24 Hours (Table) 04/20/21 04/22/21 04/22/21 Range/Units 10:00 06:09 06:09 Plt Count 131 L (150-450) k/uL Chloride 111 H (98-107) mmol/L Iron 31 L (65-175) ug/dL TIBC 197 L (228-460) ug/dL Transferrin 141.0 L (204.0-354.0) mg/dL Ferritin 620.0 H (22.0-322.0) ng/mL Total Bilirubin 1.6 H (0.2-1.3) mg/dL ALT 63 H (4-49) U/L Total Protein 5.8 L (6.3-8.2) g/dL Albumin 3.3 L (3.5-5.0) g/dL
[2021-04-22] MEDS ORDERED: hydrALAZINE HCL 20 MG/ML 1 ML VIAL IVP STA (16:13)
[2021-04-22 18:24] VITALS: BP 160/93
[2021-04-23 06:56] LABS: Methylmalonic Acid 0.15 umol/L (<0.40)
== END 2021-04-22 18:07 | disposition home or self-care (01) | DRG 394 ==
LOC: EC 09:34 → 4SSUR 12:48
PROVIDERS: ADMIT Surgery Plastic and Reconstructive Surgery; ATTEND Surgery Plastic and Reconstructive Surgery
PROC: 0F798DZ Dilation of Common Bile Duct with Intraluminal Device, Via Natural or Artificial Opening Endoscopic (ICD-10-PCS; principal; 2021-04-22 12:30)
DX: K91.89 Other postprocedural complications and disorders of digestive system (principal); R17 Unspecified jaundice; J98.11 Atelectasis; R18.8 Other ascites; K83.8 Other specified diseases of biliary tract; E80.4 Gilbert syndrome; R10.11 Right upper quadrant pain; Z20.822 Contact with and (suspected) exposure to COVID-19; Z90.49 Acquired absence of other specified parts of digestive tract; D72.829 Elevated white blood cell count, unspecified; I10 Essential (primary) hypertension; E78.5 Hyperlipidemia, unspecified; I16.0 Hypertensive urgency; E86.0 Dehydration; D45 Polycythemia vera; K81.1 Chronic cholecystitis; Y83.8 Other surgical procedures as the cause of abnormal reaction of the patient, or of later complication, without mention of misadventure at the time of the procedure; Z79.899 Other long term (current) drug therapy; Z87.442 Personal history of urinary calculi
CPT/HCPCS: 36415; 43274; 74018; 74177; 74330; 76705; 78226; 80053; 81003; 82150; 82248; 82607; 82728; 82746; 83540; 83550; 83625; 83690; 83735; 83921; 84100; 85025; 85027; 85045; 85610; 87635; 96361; 96374; 96375; 96376; 99285

== ENCOUNTER 2021-05-30 06:25 | Day surgery (SDC) | payer BC ==
[2021-05-29 10:33] VITALS: BMI 27.3
[~2021-05-30 06:25] MED LIST changes: -ACETAMINOPHEN TAB 500 MG TAB PO STA; -DEXAMETHASONE SOD PHOSPHATE 4 MG/ML 1 ML VIAL IV ONE; -GABAPENTIN 300 MG CAP PO STA; -HEPARIN SODIUM,PORCINE/PF 5,000 UNIT/0.5 ML SYRINGE SQ PRN; -INDOCYANINE GREEN 25 MG VIAL IV STA; -MIDAZOLAM 2 MG/2 ML VIAL IV PRN; -ONDANSETRON 4 MG/2 ML VIAL IVP ONE; -SCOPOLAMINE 1.5MG/72HR PATCH TRANSDERM ONE; -TAMSULOSIN 0.4 MG CAP.ER.24H PO STA
[2021-05-30 06:57] VITALS: RESP 16; TEMP 97.4
[2021-05-30] MEDS ORDERED: PROPOFOL 10 MG/ML 20 ML VIAL IV ONE (07:23)
[2021-05-30] MEDS ORDERED: LIDOCAINE 1% INJ 10MG/ML (20 ML MDV) ONE (07:23)
--- NOTE | 2021-05-30 07:34 | P.PCN ---
Date of Procedure: 05/30/21 Procedure(s) Performed: BRIEF HISTORY: Patient is a 55-year-old, pleasant, white male scheduled for an upper endoscopy as a part of CBD stent removal. Patient had post gallbladder bile leak for which she underwent ERCP with CBD stent placement on 04/22/2021. He is doing well.. PROCEDURE PERFORMED: Esophagogastroduodenoscopy with CBD stent removal. PREOPERATIVE DIAGNOSIS: History of postcholecystectomy bile leak status post ERCP with CBD stent placement 6 weeks ago. IV sedation per anesthesia. PROCEDURE: After informed consent was obtained, the patient was brought into the endoscopy unit. IV sedation was administered by Anesthesia under continuous monitoring. Initially the Olympus GIF-140 video endoscope was inserted into the mouth. Esophagus intubated without any difficulty. It was gradually advanced into the stomach and duodenum and carefully examined. The bulb and the second part of the duodenum appeared normal. The previously placed CBD stent was identified. Using a snare the CBD stent was pulled out without any difficulty and was withdrawn along with the scope. The scope at this time was withdrawn to the stomach, adequately insufflated with air, and upon careful examination, mucosa of the antrum, body, cardia and the fundus appeared normal. The scope was then withdrawn into the esophagus. The GE junction was located at 39 cm from the incisors. Mall hiatal hernia noted. The esophagus appeared normal. There were no erosions or ulcerations seen and the patient tolerated the procedure well. IMPRESSION: 1. CBD stent removal as described above. 2. Small hiatal hernia. RECOMMENDATIONS: The findings of this examination were discussed with the patient as well as his family. Advance to regular diet. Follow up in office as needed..
[2021-05-30 07:38] VITALS: PULSE 63
[2021-05-30 07:52] VITALS: BP 124/75
== END 2021-05-30 08:19 | disposition home or self-care (01) ==
LOC: ORWHC2ENDO 06:25
PROVIDERS: ATTEND Internal Medicine Gastroenterology
DX: Z46.82 Encounter for fitting and adjustment of non-vascular catheter (principal); I10 Essential (primary) hypertension; E78.5 Hyperlipidemia, unspecified; Z87.442 Personal history of urinary calculi; Z79.899 Other long term (current) drug therapy
CPT/HCPCS: 43247; J2001; J2704; 44799